=== PATIENT | male | born 1950 | race Caucasian/White ===

== ENCOUNTER 2019-09-02 05:54 | Inpatient (IN) | payer MEDICARE, OTHER ==
[~2019-09-02] VITALS: Ht 182.9 cm; Wt 150.6 kg
[2019-09-02] MEDS ORDERED: ANORO ELLIPTA1 EACH INH (05:57)
[2019-09-02] MEDS ORDERED: GLUCOPHAGE500 MG PO (05:57)
[2019-09-02] MEDS ORDERED: GLUCOTROL 5 MG T5 MG PO (05:57)
[2019-09-02] MEDS ORDERED: NOVOLIN 70/30 110 ML (05:58)
[2019-09-02] MEDS ORDERED: PROSCAR5 MG PO (06:05)
[2019-09-02] MEDS ORDERED: NEURONTIN800 MG PO (06:05)
[2019-09-02] MEDS ORDERED: ELIQUIS5 MG PO (06:05)
[2019-09-02] MEDS ORDERED: BETAPACE 80 MG80 MG PO (06:06)
[2019-09-02 07:13] LABS: ANION GAP 22.3 mmol/L (8-16); BILIRUBIN - TOTAL 0.37 mg/dL (0.2-1.3); CARBON DIOXIDE 23.9 mmol/L (21.0-32.0); CREATININE - SERUM 6.6 mg/dL (0.6-1.3); POTASSIUM - SERUM 4.2 mmol/L (3.5-5.1); PROTEIN - SERUM 6.7 g/dL (6.4-8.2)
[2019-09-02 07:20] LABS: CALCIUM 6.9 mg/dL (8.5-10.1)
--- NOTE | 2019-09-02 07:24 | NUR ---
CRITICAL LAB VALUE OF CALCIUM 6.[address] BELLA, HE SAID DO NOT TREAT THE HYPOCALCEMIA.
[2019-09-02 07:48] LABS: HEMATOCRIT 39.1 % (42.0-54.0); HEMOGLOBIN 13.2 g/dL (13.5-17.5); MCH 33.3 pg (26.0-34.0); MCHC 33.8 g/dL (31.0-37.0); MCV 98.7 fL (80.0-100.0); MEAN PLATELET VOLUME 13.1 fL (7.4-10.4); PLATELET COUNT 275 10x3/uL (130-400); RBC 3.96 10x6/uL (4.20-6.10)
[2019-09-02 08:28] VITALS: BP 145/51
[2019-09-02] MEDS ORDERED: ADALAT CC90 MG PO (08:52)
[2019-09-02] MEDS ORDERED: CATAPRES0.1 MG PO (08:53)
[2019-09-02] MEDS ORDERED: BENICAR40 MG PO (08:53)
[2019-09-02] MEDS ORDERED: LASIX80 MG PO (08:54)
[2019-09-02] MEDS ORDERED: HYDROCODON-ACE1 EA10 PO (08:54)
[2019-09-02 10:11] LABS: LYMPHOCYTES 17 % (15-50); MONOCYTES 23 % (2-11); NEUTROPHILS 46 % (40-80); PLATELET ESTIMATE NORMAL
[2019-09-02 10:12] LABS: ROULEAUX OCC; SMUDGE CELLS 1+
--- NOTE | 2019-09-02 10:45 | NUR ---
PATIENT ATTEMPTED TO URINATE. UNABLE BECAUSE I WAS PRESENT. WILL TRY AGAIN. NG TUBE CANNISTER EMPTIED. TOTAL NOW 1900 ML OUT. CL IN REACH. WCTM
[2019-09-02 12:00] VITALS: BP 161/46
--- NOTE | 2019-09-02 12:44 | NUR ---
CARDONA PLACED. REMOVED 1100 ML. STERILE TECHNIQUE MAINTAINED. 10 ML PLACED IN BALLOON. TOLERATED WELL. CL IN REACH. WCTM
[2019-09-02 14:30] LABS: APPEARANCE HAZY (CLEAR); BILIRUBIN NEGATIVE (NEGATIVE); COLOR YELLOW (YELLOW); GLUCOSE NEGATIVE (NEGATIVE); KETONE NEGATIVE (NEGATIVE); NITRITE NEGATIVE (NEGATIVE); PROTEIN 1+ mg/dL (NEGATIVE); UROBILINOGEN NORMAL (NORMAL)
--- NOTE | 2019-09-02 14:33 | NUR ---
PATIENT BLOOD GLUCOSE IS 53. TREATED AND NOTIFIED Diego WALLS IN REACH. [facility]
[2019-09-02 14:40] LABS: BACTERIA FEW /hpf (NEGATIVE); EPITHELIAL CELLS NSEEN /hpf (0-5); HYALINE CAST 0-5 /lpf (NONE SEEN); RED CELLS - URINE 0-5 /hpf (0-5); WHITE CELLS - URINE 0-5 /hpf (NEGATIVE)
[2019-09-02 15:14] LABS: INR 1.45 (0.85-1.17); PROTIME 17.1 SECONDS (11.6-15.0)
--- NOTE | 2019-09-02 16:08 | NUR ---
RIGHT FEMORAL GROIN CENTRAL LINE DRESSING CHANGED. WITH BIOPATCH PLACED PER PROTOCOL. TOLERATED WELL. DATED AND INITIALED. NO NEEDS AT THIS TIME. CL IN REACH. WCTM
[2019-09-02 17:04] VITALS: BP 115/53
--- NOTE | 2019-09-02 17:09 | NUR ---
MAGY PROVIDED. ON MED. CL IN REACH. TM
--- NOTE | 2019-09-02 18:18 | NUR ---
NOTIFIED DR BELLA ABOUT BLOOD GLUCOSE OF 70. TOLD TO TURN UP D5 TO 50 AND NS TO 100. WCTM
[2019-09-02 20:00] VITALS: BP 148/64
[2019-09-03] VITALS: BP 131/59
[2019-09-03 04:00] VITALS: BP 101/77
[2019-09-03 06:59] LABS: ANION GAP 17.7 mmol/L (8-16); BASOPHILS 0.1 % (0-2); CARBON DIOXIDE 23.2 mmol/L (21.0-32.0); EOSINOPHILS 0 % (0-7); HEMATOCRIT 36.1 % (42.0-54.0); HEMOGLOBIN 12.1 g/dL (13.5-17.5); IMMATURE GRANULOCYTES 1.6 % (0-5); LYMPHOCYTES 10.9 % (15-50); MAGNESIUM - SERUM 1.7 mg/dL (1.8-2.4); MCHC 33.5 g/dL (31.0-37.0); MCV 98.4 fL (80.0-100.0); MEAN PLATELET VOLUME 12.8 fL (7.4-10.4); MONOCYTES 15.2 % (2-11); NEUTROPHILS 72.2 % (40-80); PHOSPHOROUS 4.9 mg/dL (2.5-4.9); PLATELET COUNT 247 10x3/uL (130-400); POTASSIUM - SERUM 3.9 mmol/L (3.5-5.1); RBC 3.67 10x6/uL (4.20-6.10); RDW 14.2 % (11.5-14.5); WBC 20.3 10x3/uL (4.8-10.8)
[2019-09-03 07:22] LABS: CREATININE - SERUM 4.3 mg/dL (0.6-1.3)
[2019-09-03 07:24] LABS: CALCIUM 6.5 mg/dL (8.5-10.1)
--- NOTE | 2019-09-03 07:29 | NUR ---
ASSESSED AT THE BEGINNING OF THE SHIFT. PT IS SOME WHAT CONFUSED AND IS IN THE ROOM, THE BED ALARM WAS PUT ON AFTER HE WAS SITTING UP NAKED ON THE SIDE OF THE BED. WE HAD TO KEEP PUTTING CLOTHES ON HIM AND RETAPING HIS NG TUBE AND CARDONA WHEN HE PULLED ON THEM. AROUND MIDNIGHT HE PULLED HIS NG TUBE OUT AND HERB GABI WAS HERE AND ORDERED BENADRYL IV TO HELP HIM SETTLE DOWN. HE ALSO PUT A HOLD ON THE NG TUBE FOR NOW. LATER HIS STATED HE WAS HURTING AND WAS GIVEN MORPHINE. NEITHER MORPHINE OR BENADRYL WAS A HELP. HE HAD HIS BIPAP ON AND OFF ALL NIGHT AND BY THIS MORNING HIM AND HIS WERE WORN OUT.
--- NOTE | 2019-09-03 08:39 | NUR ---
IN ROOM. CPAP ON. CL IN REACH. NO NEEDS AT THIS TIME. WCTM
[2019-09-03 09:02] VITALS: BP 107/37
--- NOTE | 2019-09-03 11:15 | NUR ---
PATIENT DRESSING CHANGED TO RIGHT FEMORAL GROIN. PER PROTOCOL. WAS DETACHING. CARDONA CARE PROVIDED AND STAT LOCK REPLACED SINCE IT HAD LOST ADHESSION. CL IN REACH. IN ROOM. FALL PRECAUTIONS IN PLACE. WCTM
[2019-09-03 12:09] VITALS: BMI 39.9
[2019-09-03 13:25] VITALS: BP 104/53
[2019-09-03 17:02] VITALS: BP 139/51
[2019-09-03 20:00] VITALS: BP 126/48
[2019-09-04] VITALS (27 sets, daily range): BP systolic 90–177; BP diastolic 48–119
[2019-09-04 06:42] LABS: HEMATOCRIT 31.3 % (42.0-54.0); HEMOGLOBIN 10.4 g/dL (13.5-17.5); MCH 32.5 pg (26.0-34.0); MCHC 33.2 g/dL (31.0-37.0); MCV 97.8 fL (80.0-100.0); MEAN PLATELET VOLUME 13.2 fL (7.4-10.4); PLATELET COUNT 248 10x3/uL (130-400); RDW 14.8 % (11.5-14.5); WBC 28.4 10x3/uL (4.8-10.8)
[2019-09-04 06:58] LABS: ANION GAP 20.4 mmol/L (8-16); CARBON DIOXIDE 21.3 mmol/L (21.0-32.0); CREATININE - SERUM 4.3 mg/dL (0.6-1.3); MAGNESIUM - SERUM 1.6 mg/dL (1.8-2.4); PHOSPHOROUS 5.1 mg/dL (2.5-4.9); POTASSIUM - SERUM 3.7 mmol/L (3.5-5.1)
[2019-09-04 07:07] LABS: CALCIUM 6.4 mg/dL (8.5-10.1)
[2019-09-04 07:31] LABS: BASOPHILS 2 % (0-2); LYMPHOCYTES 8 % (15-50); MONOCYTES 6 % (2-11); NEUTROPHILS 79 % (40-80); PLATELET ESTIMATE NORMAL
[2019-09-04 07:32] LABS: TARGET CELLS OCC
--- NOTE | 2019-09-04 07:45 | NUR ---
PT RESTING IN BED WITH EYES OPEN, AT THE BEDSIDE. IV LOCATED TO RIGHT GROIN/FEMORAL AREA RUNNING D5W @ 50 AND NS @ 100ML. PT HAS HAD ANOTHER BM OF WATERY BLACK STOOL, SAMPLE COLLECTED AND TAKEN TO LAB. NO S/S OF DISTRESS AT THIS TIME, DENIES NEEDS, WILL CONT TO MONITOR.
--- NOTE | 2019-09-04 08:43 | NUR ---
REPORTED CRITICAL CALCIUM TO [place] CHANG 6.4, WILL TREAT BASED OFF ORDERS.
--- NOTE | 2019-09-04 14:04 | NUR ---
CENTRAL LINE ATTEMPTED LEFT CHEST PER DR WILSON
--- NOTE | 2019-09-04 15:06 | NUR ---
LR 1 LITER BOLUS STARTED.
--- NOTE | 2019-09-04 15:12 | NUR ---
TWO AMPS BICARB GIVEN WITH NS FLUSH PER ORDER.
[2019-09-04 15:41] LABS: HEMATOCRIT 31.8 % (42.0-54.0); HEMOGLOBIN 10.6 g/dL (13.5-17.5); MCH 32.8 pg (26.0-34.0); MCHC 33.3 g/dL (31.0-37.0); MCV 98.5 fL (80.0-100.0); MEAN PLATELET VOLUME 12.8 fL (7.4-10.4); PLATELET COUNT 227 10x3/uL (130-400); RBC 3.23 10x6/uL (4.20-6.10); RDW 14.8 % (11.5-14.5); WBC 20.4 10x3/uL (4.8-10.8)
[2019-09-04 15:50] LABS: ALBUMIN 1.9 g/dL (3.4-5.0); BILIRUBIN - TOTAL 0.52 mg/dL (0.2-1.3); CARBON DIOXIDE 20.4 mmol/L (21.0-32.0); CREATININE - SERUM 3.8 mg/dL (0.6-1.3); POTASSIUM - SERUM 3.4 mmol/L (3.5-5.1); PROTEIN - SERUM 5.8 g/dL (6.4-8.2)
[2019-09-04 15:52] LABS: CALCIUM 6.5 mg/dL (8.5-10.1)
--- NOTE | 2019-09-04 16:24 | NUR ---
PATIENT RECEIVED FROM PACU, SEDATED, ON VENT, ETT 8.0 AT 24 CM. VENT SETTINGS A/C 15, TV 600, PEEP 5, FIO2 50%. CM - SR RATE OF 76, BP - 145/66, RR - 15, BBS CLEAR AND EQUAL SPO2 - 99%. MIDLINE ABDOMINAL WOUND VAC IN PLACE AND RONNIE DRAINS X 2 TO LEFT ABDOMEN WITH BLOODY DRAINAGE NOTED. CARDONA CATH WITH 1050 OF DARK IDRIS UOP NOTED. RESTRAINTS PLACED. RIGHT GROIN CVL IN PLACE, DRESSING C/D/I, CVP MONITORED LEVELED AND ZEROED 11, RIGHT SUBCLAVIAN CVL WITH DRESSING C/DI, STAT XRAY FOR PLACEMENT, OK TO USE BUT PER DR. JOEL MONITOR CVP FROM RIGHT GROIN SITE DUE TO PLACEMENT NOT OPTIMAL FOR CVP MONITORING WITH RIGHT SUBCLAVIAN. HEAD TO TOE ASSESSMENT COMPLETED.
--- NOTE | 2019-09-04 16:30 | NUR ---
PATIENTS AND RETAIL PHARMACY TECHNICIAN AT BEDSIDE, UPDATED AND QUESTIONS ANSWERED. TELPHONE SECURITY CODE "SAINT" ESTABLISHED. PATIENT WAKING UP AND FOLLOWING COMMANDS.
--- NOTE | 2019-09-04 16:45 | NUR ---
CARDIZEM GTT STARTED FOR JUNCTIONAL TACHYCARDIA PER ORDER AT 5 MG/HR.
--- NOTE | 2019-09-04 17:00 | NUR ---
PATIENT TURNED AND REPOSITIONED INBED. VSS.
--- NOTE | 2019-09-04 17:00 | NUR ---
CARDIZEM GTT INCREASED TO 10 MG/HR.
--- NOTE | 2019-09-04 17:15 | NUR ---
CARDIZEM GTT INCREASED TO 15 MG/HR.
[2019-09-04 17:17] LABS: APPEARANCE CLEAR (CLEAR); BILIRUBIN NEGATIVE (NEGATIVE); COLOR YELLOW (YELLOW); GLUCOSE NEGATIVE (NEGATIVE); KETONE NEGATIVE (NEGATIVE); NITRITE NEGATIVE (NEGATIVE); PROTEIN NEGATIVE (NEGATIVE); SPECIFIC GRAVITY 1.015 (1.005-1.020); UROBILINOGEN NORMAL (NORMAL)
[2019-09-04 17:18] LABS: BACTERIA FEW /hpf (NEGATIVE); EPITHELIAL CELLS NSEEN /hpf (0-5)
[2019-09-04 17:19] LABS: WHITE CELLS - URINE 0-5 /hpf (NEGATIVE)
--- NOTE | 2019-09-04 17:42 | NUR ---
VERSED 2 MG GIVEN IVP PER ORDER WITH NS FLUSH FOR HR 140'S AND SYSTOLIC BP IN 140S.
--- NOTE | 2019-09-04 17:48 | NUR ---
PROPOFOL GTT STARTED AT 5 MCG/KG/MIN PER ORDER. PATIENT ON FENTANYL AT 300 MCG/HR AND AWAKE BREATHING OVER VENT.
--- NOTE | 2019-09-04 17:57 | NUR ---
PATIENT IN SR RATE 76, VSS. CARDIZEM GTT DECREASED TO 10 MG/HR.
--- NOTE | 2019-09-04 17:58 | NUR ---
PATIENT IN SR RATE OF 75, CARDIZEM GTT DECREASED TO 10 MG/HR.
--- NOTE | 2019-09-04 19:00 | NUR ---
SHIFT ASSESSMENT COMPLETE. VS STABLE. NO VISUAL CUES OF DISTRESS NOTED. WILL CONTINUE TO MONITOR.
[2019-09-05] VITALS (37 sets, daily range): BP systolic 77–141; BP diastolic 46–89
[2019-09-05 06:13] LABS: HEMATOCRIT 26.3 % (42.0-54.0); HEMOGLOBIN 8.6 g/dL (13.5-17.5); MCH 32.5 pg (26.0-34.0); MCHC 32.7 g/dL (31.0-37.0); MCV 99.2 fL (80.0-100.0); MEAN PLATELET VOLUME 12.9 fL (7.4-10.4); PLATELET COUNT 199 10x3/uL (130-400); RBC 2.65 10x6/uL (4.20-6.10); RDW 15.3 % (11.5-14.5); WBC 32.4 10x3/uL (4.8-10.8)
[2019-09-05 06:32] LABS: ALBUMIN 1.5 g/dL (3.4-5.0); BILIRUBIN - TOTAL 0.41 mg/dL (0.2-1.3); CARBON DIOXIDE 24.4 mmol/L (21.0-32.0); CREATININE - SERUM 3.5 mg/dL (0.6-1.3); MAGNESIUM - SERUM 1.8 mg/dL (1.8-2.4); PROTEIN - SERUM 5.3 g/dL (6.4-8.2)
[2019-09-05 06:33] LABS: APTT 39.8 SECONDS (22.8-39.4); INR 1.62 (0.85-1.17); PROTIME 18.6 SECONDS (11.6-15.0)
[2019-09-05 06:34] LABS: CALCIUM 6.4 mg/dL (8.5-10.1); POTASSIUM - SERUM 4.4 mmol/L (3.5-5.1)
[2019-09-05 09:07] LABS: LYMPHOCYTES 8 % (15-50); MONOCYTES 9 % (2-11); NEUTROPHILS 80 % (40-80); PLATELET ESTIMATE NORMAL; ROULEAUX OCC
--- NOTE | 2019-09-05 09:15 | OP ---
PATIENT NAME: CONCHITA HILL MEDICAL RECORD: [id number] :46 LOCATION:[facility] D.2309 ADMISSION DATE:09/02/19 SURGEON: EVA WILSON MD DATE OF OPERATION: 09/04/2019 SURGEON: Eva Wilson MD PREOPERATIVE DIAGNOSIS: Ischemic bowel. POSTOPERATIVE DIAGNOSIS: Ischemic gangrenous proximal small bowel. PROCEDURE PERFORMED: Exploratory laparotomy, small bowel resection, abdominal washout and application of negative pressure wound therapy greater than 50 square cm right subclavian central venous line. ANESTHESIA: General. COMPLICATIONS: None. SPECIMENS: Proximal small bowel approximately 30 cm. Case was grossly contaminated. ESTIMATED BLOOD LOSS: 200 cc. OPERATIVE COURSE: After consent was obtained, the patient was taken to the operating room and placed in supine position on the operating table. General anesthesia was given via endotracheal intubation after a timeout was performed to confirm the correct patient and procedure, and was prepped and draped in typical sterile fashion and Ioban dressing was placed. The midline incision was made with a 10-blade scalpel. Dissection of the subcutaneous tissue continued with electrocautery. The fascia was opened with #15 blade scalpel. Under direct vision, the main portion of the fascial incision was opened with electrocautery. The peritoneum was opened with electrocautery. An Abran wound retractor was placed. The greater omentum was extracorporealized. The transverse colon was reflected cephalad. The small bowel was extracorporealized. The small bowel was markedly dilated. It was dusky with patchy areas of necrosis through the proximal two-thirds of the small bowel as is consistent with the CT findings with the ligament of Treitz was located with the cephalad retraction of the transverse colon starting approximately 5 cm from the ligament of Treitz. There was an area of necrotic full-thickness gangrenous necrotic small bowel approximately 30 cm. Small bowel resection of this timeout was performed using firings of the NORMA linear cutting stapler. The mesentery was taken with the Harmonic scalpel. The specimen was passed off the field and sent for permanent pathology. The small bowel was decompressed distally with an enterotomy to staple line, removing approximately 2 liters of fluid from the mid and distal small bowel. The NG tube was placed at this time, with approximately 1500 cc suctioned from the proximal area. There was approximately 5 cm of small bowel at the ligament of Treitz. At this time, performed a handsewn small bowel anastomosis of the 2 staple ends. Enterotomies were made. Anastomosis was partially with common enterotomy with a single firing of the stapler in a [id number] fashion. The common enterotomy was then closed using running 3-0 Vicryl suture, but the staple line was both imbricated using 3-0 silk suture. The area was irrigated with 6 liters of normal saline. The NG tube was advanced through the pylorus into the second and third portions of the duodenum. Two OPERATIVE REPORT [id number] CONCHITA HILL drains were placed into the left upper quadrant at the anterior and posterior surface of the anastomosis. At this time, the bowel had markedly improved in color and flow, but there were still numerous areas of patchy necrosis noted. At this time, we decided to place an ABThera wound VAC with anticipation of return to the OR within 24-36 hours for a second look and delayed abdominal closure. The ABThera wound VAC was placed into the abdominal cavity. The RONNIE drains were secured to skin using 2-0 nylon suture. At the end of the case, all needle and instrument counts were correct. No complications occurred. The right chest and neck were then prepped and draped in typical sterile fashion. The right subclavian vein was cannulated on the first pass. The dilator was passed over the wire in a standard Seldinger fashion. The catheter was then advanced over the wire in a standard Seldinger fashion. A Biopatch was placed and secured to the skin using 2-0 nylon suture. At this time again, all needle and instrument counts were correct. No complications occurred. The patient was transferred to the ICU in critical condition, intubated. TRANSINT:[id number] Voice Confirmation ID: [id number] DOCUMENT ID: [id number] EVA WILSON MD at 0915 CC: [id number] DICTATION DATE: 09/04/19 1453 ENGINEERING CLERK: 09/04/[id number] ADM IN [facility] [address] [place] [address]
--- NOTE | 2019-09-05 19:00 | NUR ---
SHIFT ASSEESSMENT COMPLETED. PT CARE ASSUMED. MONITORS ON AND WORKING, VENT SETTINGS NOTED, CARDONA STAT LOCKED IN PLACE. SEE FLOW SHEET FOR FURTHER DETAILS. WILL CONTINUE TO OBSERVE.
--- NOTE | 2019-09-05 21:00 | NUR ---
PT TURNED AND REPOSITIONED FOR COMFORT, MONITORS ON AND WORKING, VITALS STABLE, AT BEDSIDE, UPDATE PROVIDED, WILL CONTINUE TO OBSERVE.
--- NOTE | 2019-09-05 23:00 | NUR ---
PT TURNED AND REPOSITIONED FOR COMFORT, MONITORS ON AND WORKING, VITALS STABLE. SEE FLOW SHEET FOR FURTHER DETAILS, WILL CONTINUE TO OBSERVE.
[2019-09-06] VITALS (30 sets, daily range): BP systolic 84–170; BP diastolic 55–117
--- NOTE | 2019-09-06 01:00 | NUR ---
PT IN AFIB WITH A RATE OF 140'S. PAGED, PHONECALL WAS RETURNED AND NEW ORDERS REC'D.
--- NOTE | 2019-09-06 03:00 | NUR ---
RIGHT GROIN CENTRAL LINE D/C PER MD ORDERS, TIP SENT OFF FOR CULTURE. PRESSURE APPLIED, DRESSING CDI. MONITORS ON AND WORKING, VITALS STABLE, SEE FLOW SHEET FOR FURTHER DETIALS, WILL CONTINUE TO OBSERVE.
[2019-09-06 03:48] LABS: BASOPHILS 0 % (0-2); EOSINOPHILS 0 % (0-7); HEMATOCRIT 27.9 % (42.0-54.0); HEMOGLOBIN 9.3 g/dL (13.5-17.5); IMMATURE GRANULOCYTES 1.5 % (0-5); LYMPHOCYTES 4.6 % (15-50); MCH 32.4 pg (26.0-34.0); MCHC 33.3 g/dL (31.0-37.0); MCV 97.2 fL (80.0-100.0); MEAN PLATELET VOLUME 12.5 fL (7.4-10.4); MONOCYTES 5.6 % (2-11); NEUTROPHILS 88.3 % (40-80); PLATELET COUNT 171 10x3/uL (130-400); RBC 2.87 10x6/uL (4.20-6.10); RDW 17.8 % (11.5-14.5); WBC 24.7 10x3/uL (4.8-10.8)
[2019-09-06 03:55] LABS: ALBUMIN 1.8 g/dL (3.4-5.0); ANION GAP 15.3 mmol/L (8-16); BILIRUBIN - TOTAL 0.26 mg/dL (0.2-1.3); CARBON DIOXIDE 24.1 mmol/L (21.0-32.0); CREATININE - SERUM 2.7 mg/dL (0.6-1.3); MAGNESIUM - SERUM 1.9 mg/dL (1.8-2.4); PHOSPHOROUS 4.8 mg/dL (2.5-4.9); POTASSIUM - SERUM 4.4 mmol/L (3.5-5.1); PROTEIN - SERUM 5.3 g/dL (6.4-8.2)
[2019-09-06 03:58] LABS: CALCIUM 6.9 mg/dL (8.5-10.1)
--- NOTE | 2019-09-06 07:15 | NUR ---
REPORT RECEIVED. PT ON VENT. HAS NGT. WOUND VAC TO ABD. 2 RONNIE DRAINS TO LEFT ABD. PLAN TO GO BACK TO SURGERY TODAY. PT HAS CARDONA. RIGHT SUBCLAVIAN CENTRAL LINE WITH LR WITH 20K, AMIODORARONE, NS, FENTANYL, AND PROPOFOL. PT IN AFIB. WILL CONTINUE TO MONITOR.
--- NOTE | 2019-09-06 08:43 | NUR ---
Nutrition follow-up: Pt NPO for exp lap today Labs reviewed Wt: 318# CVL pulled and tip cultured IV albumin Will need nutrition support when more stable. RDN following.
--- NOTE | 2019-09-06 09:00 | NUR ---
SIGNED CONSENTS FOR PROCEDURE TODAY AND FOR ANESTHESIA. HEART RATE JUMPING AROUND FROM 110-130. ON AMIODARONE AT 0.5MCG/MIN. DOCTORS AWARE. WILL CONTINUE TO MONITOR.
--- NOTE | 2019-09-06 10:56 | NUR ---
PT PREOPPED FOR SURGERY. CONSENTS SIGNED. AT BEDSIDE.
--- NOTE | 2019-09-06 12:30 | NUR ---
PT RESTING QUIETLY. ON SEDATION. PLAN TO GO TO SURGERY ABOUT 1400. WILL CONTINUE TO MONITOR.
--- NOTE | 2019-09-06 14:29 | NUR ---
Nutrition consult: Received consult to begin TPN chart reviewed TPN ordered. RDN following.
--- NOTE | 2019-09-06 14:53 | NUR ---
PT TAKEN TO SURGERY.
--- NOTE | 2019-09-06 16:43 | NUR ---
PT BACK FROM SURGERY. ABLE TO CLOSE ABD. HAS INCISIONAL VAC PLACED. STATED HE WOULD CHANGE THAT OUT ON FRIDAY PROBABLY. NEW CENTRAL LINE PLACED TO RIGHT SUBC. NEW TUBING AND MEDS HUNG. 99/63 WITH MAP OF 70. HR OF 112. ON AMIODARONE. 97%. VENT SETTINGS SAME PRIOR TO SURGERY. WILL CONTINUE TO MONITOR.
--- NOTE | 2019-09-06 17:00 | MORECARE ---
CASE MANAGEMENT DISCHARGE SUMMARY PATIENT: CONCHITA HILL UNIT: [id number] ADM DATE: 09/02/19 AGE: 69 : 48 SEX: M ROOM/BED: D.2309 AUTHOR: NETO,DOC PHYSICIAN: REFERRING PHYSICIAN: SAL BELLA MD DATE OF SERVICE: 09/06/19 Discharge Plan Patient Name: CONCHITA HILL Facility: [facility]:[place] : 1950 Planned Disposition: Anticipated Discharge Date: Discharge Date: Expected LOS: Initial Reviewer: [email or web address] Initial Review Date: 09/06/2019 Generated: 09/06/19 5:59 pm DCP- Discharge Planning Updated by [email or web address]: Amy Kerr on 09/06/19 3:[address] Patient Name: CONCHITA HILL Admission Status: ER Accout number: [id number] Admission Date: 09-02-2019 : 1950 Admission Diagnosis: Attending: SAL BELLA Current LOS: 4 Anticipated DC Date: Planned Disposition: Primary Insurance: MEDICARE A & B Discharge Planning Comments: CM met with patient's at bedside after explaining CM role and obtaining verbal consent. Patient is currently on vent sedated. Patient lives at home with his Tiesha where he is independent with his care and plans to return there upon discharge. Patient feels this would be a safe discharge. CM discussed availability / needs of home health and medical equipment. Patient denies any discharge needs at this time. Patient states he will have his family drive him home upon discharge. Patient is currently in ICU uncertain as to what his discharge needs will be at time of discharge. CM will continue to follow and assist as needed with discharge planning / needs. Coffee Attendant: Amy Kerr DCPIA - Discharge Planning Initial Assessment Updated by [email or web address]: Amy Kerr on 09/06/19 4:52 pm * Is the patient Alert and Oriented? No * How many steps to enter\exit or inside your home? * PCP [facility] * Pharmacy [facility] * Preadmission Environment Home with Family * ADLs Independent * Equipment CPAP * Other Equipment GLUCOMETER * List name and contact numbers for known caregivers / representatives who currently or will assist patient after discharge: TIESHA HILL - SPOUSE - [phone] * Verbal permission to speak to the caregivers and representatives has been obtained from the patient. N/A * Community resources currently utilized None * Additional services required to return to the preadmission environment? No * Can the patient safely return to the preadmission environment? Yes * Has this patient been hospitalized within the prior 30 days at any hospital? No Patient Name: CONCHITA HILL Page [phone] at 1700 All edits/amendments must be made on the electronic document DICTATION DATE: 09/06/191658 SERVOMECHANISM ASSEMBLER: FELIPE 09/06/191658 RPT#: [id number] DC DATE: STATUS: ADM IN [facility] [address] [place] [address] END OF REPORT
--- NOTE | 2019-09-06 17:45 | NUR ---
US TECH IN WITH PT AT THIS TIME.
[2019-09-07] VITALS (24 sets, daily range): BP systolic 84–163; BP diastolic 51–129
[2019-09-07 06:21] LABS: HEMATOCRIT 27.9 % (42.0-54.0); MCH 31.8 pg (26.0-34.0); MCHC 32.3 g/dL (31.0-37.0); MCV 98.6 fL (80.0-100.0); MEAN PLATELET VOLUME 12.7 fL (7.4-10.4); PLATELET COUNT 174 10x3/uL (130-400); RBC 2.83 10x6/uL (4.20-6.10); RDW 18.3 % (11.5-14.5)
[2019-09-07 06:24] LABS: WBC 15.6 10x3/uL (4.8-10.8)
[2019-09-07 06:39] LABS: ALBUMIN 2.2 g/dL (3.4-5.0); ANION GAP 15.4 mmol/L (8-16); BILIRUBIN - TOTAL 0.32 mg/dL (0.2-1.3); CREATININE - SERUM 2.2 mg/dL (0.6-1.3); MAGNESIUM - SERUM 2.2 mg/dL (1.8-2.4); PHOSPHOROUS 3.9 mg/dL (2.5-4.9); POTASSIUM - SERUM 4.4 mmol/L (3.5-5.1); PROTEIN - SERUM 4.6 g/dL (6.4-8.2)
--- NOTE | 2019-09-07 07:15 | NUR ---
REPORT RECEIVED. PT ON VENT; SETTINGS PER RT. PT HAS NGT TO LIS. PT HAS INCISIONAL VAC ON FROM SURGERY YESTERDAY. PT HAS 2 RONNIE DRAINS TO LEFT ABD. PT HAS A CARDONA. HEAD TO TOE ASSESSMENT COMPLETED. PT IN UNCONTROLLED AFIB. AFEBRILE. PT IN SOFT WRIST RESTRAINTS. WILL CONTINUE TO MONITOR.
--- NOTE | 2019-09-07 07:19 | NUR ---
Nutrition follow-up: Chart reviewed. TPN rate at 75 ml/hr instead of 40 ml/hr. Labs reviewed. T; propofol infusing @ 35.9 ml/hr RDN changed TPN order to 75 ml/hr and increased insulin due to elevated glucose. RDN following.
--- NOTE | 2019-09-07 07:24 | OP ---
PATIENT NAME: CONCHITA HILL MEDICAL RECORD: [id number] :46 LOCATION:[facility] D.2306 ADMISSION DATE:09/02/19 SURGEON: EVA WILSON MD DATE OF OPERATION: 09/06/2019 SURGEON: Eva Wilson MD PREOPERATIVE DIAGNOSES: 1. Ischemic small bowel. 2. Abdominal sepsis. 3. Open abdomen with negative pressure wound VAC. 4. Renal failure. 5. Respiratory failure. POSTOPERATIVE DIAGNOSES: 1. Ischemic small bowel. 2. Abdominal sepsis. 3. Open abdomen with negative pressure wound VAC. 4. Renal failure. 5. Respiratory failure. PROCEDURES PERFORMED: 1. Delayed abdominal closure. 2. Removal of negative pressure wound VAC therapy. 3. Abdominal washout. 4. Placement of negative pressure wound therapy incisional VAC. 5. Replacement of right subclavian central venous line with fluoroscopy. ANESTHESIA: General. COMPLICATIONS: None. SPECIMENS: None. Case was contaminated. OPERATIVE COURSE: After consent was obtained, the patient was taken from the ICU, intubated to the operating room. He was transferred to the operating table. General anesthesia was given. A timeout was taken to confirm the correct patient and procedure. At this time, I removed the intra-abdominal AbThera wound VAC from the patient's abdomen. The abdomen was then prepped and draped in typical sterile fashion. The abdomen was examined in all 4 quadrants. There was no evidence of bile leakage. There is no evidence of succuss. The abdomen was irrigated with 2 liters of warmed normal saline. Lysis of adhesions was gently performed. The omentum was grasped and retracted cephalad exposing the transverse colon and transverse mesocolon. The small bowel was run from the anastomosis at the ligament of Treitz to the terminal ileum. The areas of patchy necrosis of small bowel all appeared to be healthy and intact. There were some multiple areas that are the previous areas of concern that had turned from purple to red with no obvious serosal defects. The bowel appeared warm and well perfused. Further irrigation was performed. The anastomosis was again inspected. The anastomosis appeared to be healing well. It was reinforced with Tisseel. Using electrocautery, a segment of greater omentum was dissected off the transverse colon to be used as a patch around the anastomosis. At this time, the abdomen was closed using #1 looped PDS in a running fashion. The skin OPERATIVE REPORT [id number] CONCHITA HILL was loosely reapproximated with olive. The silver sponge was used, margy were created and placed between the olive and a layer of tape was placed on the skin as a barrier. A second piece of sponge was then needed to be used placed over the margy and secured with tape and placed to suction with good seal providing an incisional VAC closure. At the end of the case, all needle and instrument counts were correct. At this time, when the count was complete, the right chest was prepped and draped in a typical sterile fashion. Using fluoroscopy, a 0.035 Glidewire was placed through the distal channel and it was advanced past the atriocaval junction in the IVC. The catheter was removed. The dilator was passed over the Glidewire in standard fashion. Next, the 0.035 Glidewire was removed and an Amplatz stiff wire was placed under fluoroscopy into the atriocaval junction. At this time, a new triple-lumen catheter was passed over the wire. The dilator was removed. The catheter was then passed over the wire in a standard Seldinger fashion under fluoroscopy and advanced to the atriocaval junction. There was no kinking or coiling of the central line at this time. The wire was removed. All 3 ports were aspirated and flushed. Biopatch was placed. The catheter was secured to the skin using 2-0 Prolene suture and a sterile Tegaderm dressing. At the end of the procedure, all needle and instrument counts were correct. No complications occurred. The patient was transferred in critical condition to the ICU, intubated. TRANSINT:[id number] Voice Confirmation ID: [id number] DOCUMENT ID: [id number] EVA WILSON MD at 0724 CC: [id number] DICTATION DATE: 09/06/19 1649 WILDLIFE PROTECTOR: 09/07/19 022 ADM IN [facility] [id number] [place] [address]
--- NOTE | 2019-09-07 09:39 | NUR ---
PT SUCTIONED AND REPOSITIONED. AM MEDICATIONS GIVEN. VSS. IN UNCONTROLLED AFIB. WILL CONTINUE TO MONITOR.
--- NOTE | 2019-09-07 10:38 | NUR ---
DR HURTADO OKAYED TO RUN LR AT 10 CARRIER FLUID FOR SEDATION. STARTING PT ON BUMEX.
[2019-09-07 11:14] LABS: LYMPHOCYTES 7 % (15-50); MONOCYTES 6 % (2-11); NEUTROPHILS 86 % (40-80); PLATELET ESTIMATE NORMAL
[2019-09-07 11:15] LABS: ANISOCYTOSIS OCC; CRENATED CELLS OCC; ROULEAUX OCC
--- NOTE | 2019-09-07 11:21 | NUR ---
ECHO AND BUBBLE STUDY DONE. PT REPOSITIONED. DR MAO ROUNDED ON PT. NO NEW ORDERS AT THIS TIME.
--- NOTE | 2019-09-07 13:27 | NUR ---
PT IN UNCONTROLLED AFIB WITH RATE OF 167. SPOKE WITH DR BELLA ABOUT IT. HE STATED TO STOP DIURETICS AND TO GIVE 5 OF LOPRESSOR IV AND TO GET A 1L BOLUS OF NS. STATED HE TRIED THIS BEFORE AND THIS IS WHAT THE PT DID.
--- NOTE | 2019-09-07 15:24 | NUR ---
PT MAXED ON FENTANYL AT 700MCG/HR. REMAINS IN UNCONTROLLED AFIB WITH RATE OF 137. HAS VERSED INFUSING AT THIS TIME. TITRATING PER ORDER. WILL CONTINUE TO MONITOR.
--- NOTE | 2019-09-07 17:30 | NUR ---
PT RESTING QUIETLY. VSS. WILL CONTINUE TO MONITOR.
--- NOTE | 2019-09-07 19:00 | NUR ---
BEDSIDE REPORT AND SHIFT ASSESSMENT COMPLETE, SEE FLOWSHEET. PT SEDATED, OPENS EYES AND FOLLOWS COMMANDS. PT AGITATED, RESTLESS. AFIB ON MONITOR, RATE OF 150. AMIO @ 0.5. R SUBCLAVIAN CVL PATENT, DRESSING CDI, SEE IV FLOWSHEET. NGT TO LIS, DARK GREEN EMESIS NOTED IN TUBE AND CANISTER. PT VENTALATED, SEE FLOWSHEET FOR VENT SETTINGS. BILAT WRIST RESTRAINTS ON, SKIN WNL.
--- NOTE | 2019-09-07 19:30 | NUR ---
CHG BATH AND LINEN CHANGE COMPLETE.
--- NOTE | 2019-09-07 19:40 | NUR ---
HERB ASHLEY APN AT BEDSIDE. NEW ORDERS RECEIVED.
--- NOTE | 2019-09-07 20:45 | NUR ---
FAMILY AT BEDSIDE, UPDATE GIVEN.
--- NOTE | 2019-09-07 22:00 | NUR ---
SPOKE WITH DULCE GUY, UPDATE GIVEN. WILL CONTINUE TO MONITOR.
[2019-09-07 22:05] LABS: ANION GAP 15.9 mmol/L (8-16); CALCIUM 7.2 mg/dL (8.5-10.1); CARBON DIOXIDE 22.2 mmol/L (21.0-32.0); CREATININE - SERUM 1.9 mg/dL (0.6-1.3); MAGNESIUM - SERUM 1.9 mg/dL (1.8-2.4); POTASSIUM - SERUM 4.1 mmol/L (3.5-5.1)
--- NOTE | 2019-09-07 23:00 | NUR ---
REASSESSMENT COMPLETE, SEE FLOWSHEET. T ELEVATED, ICE PACKS PLACED ON PT. HR 110'S, AMIO INFUSING PER MAR. PT SEDATED, OPENS EYES. WILL CONTINUE TO MONITOR.
[2019-09-08] VITALS (24 sets, daily range): BP systolic 102–133; BP diastolic 52–94
--- NOTE | 2019-09-08 01:00 | NUR ---
SPOKE WITH LOUIS, UPDATE GIVEN.
--- NOTE | 2019-09-08 02:00 | NUR ---
AFIB RATE OF 150S. UPDATE CALLED TO DR BELLA. NEW ORDERS RECEIVED.
--- NOTE | 2019-09-08 03:00 | NUR ---
REASSESSMENT COMPLETE, SEE FLOWSHEET. T 98.4, ICE PACKS TAKEN OFF PT. LLQ RONNIE DRAIN AND LUQ RONNIE DRAIN DRESSINGS CHANGED, SITE WNL. WILL CPOC.
--- NOTE | 2019-09-08 05:00 | NUR ---
PT RESTING QUIETLY. NO SIGNS OF DISTRESS NOTED.
[2019-09-08 05:29] LABS: ALBUMIN 2.5 g/dL (3.4-5.0); ANION GAP 12.9 mmol/L (8-16); BILIRUBIN - TOTAL 0.48 mg/dL (0.2-1.3); CALCIUM 7.1 mg/dL (8.5-10.1); CARBON DIOXIDE 24.1 mmol/L (21.0-32.0); CREATININE - SERUM 1.6 mg/dL (0.6-1.3); PROTEIN - SERUM 4.9 g/dL (6.4-8.2)
--- NOTE | 2019-09-08 07:15 | NUR ---
REPORT RECEIVED. PT ON VENT. SETTINGS PER RT. PT HAS NGT TO LIS. 2 RONNIE DRAINS. INCISIONAL VAC TO ABDOMEN. HAS CARDONA. PT IN UNCONTROLLED AFIB. MULTIPLE DRIPS. VSS. WILL CONTINUE TO MONITOR.
[2019-09-08 08:34] LABS: MAGNESIUM - SERUM 2.1 mg/dL (1.8-2.4)
[2019-09-08 08:37] LABS: PHOSPHOROUS 2.7 mg/dL (2.5-4.9)
--- NOTE | 2019-09-08 08:40 | NUR ---
Nutrition follow-up: Chart review Labs reviewed Will continue current TPN regimen RDN following
--- NOTE | 2019-09-08 09:45 | NUR ---
DR MAO IN UNIT. WANTS PT SEDATION TURNED DOWN. FENTANYL TO 500MCG AND VERSED TO 3MG. WILL TITRATE DOWN.
--- NOTE | 2019-09-08 11:45 | NUR ---
PT SUCTIONED AND REPOSITIONED. WILL CONTINUE TO MONITOR.
--- NOTE | 2019-09-08 12:43 | NUR ---
DR JOEL ROUNDED FOR DR WILSON. FLUSHED NGT. NO NEW ORDERS AT THIS TIME. WILL CONTINUE TO MONITOR.
--- NOTE | 2019-09-08 13:50 | NUR ---
AT BEDSIDE. UPDATED REGARDING PT STATUS. WILL CONTINUE TO MONITOR.
--- NOTE | 2019-09-08 15:55 | NUR ---
HR STAYING IN 150S-160S. CALLED DR BELLA. GOT A ONE TIME DOSE OF LOPRESSOR 5MG IV.
--- NOTE | 2019-09-08 18:24 | NUR ---
HR 113. VSS. REPOSITIONED AND SUCTIONED. WILL CONTINUE TO MONITOR.
--- NOTE | 2019-09-08 18:55 | NUR ---
BEDSIDE REPORT AND SHIFT ASSESSMENT COMPLETE, SEE FLOWSHEET. VSS, NO SIGNS OF ACUTE DISTRESS NOTED. PT SEDATED, OPENS EYES. WILL CONTINUE TO MONITIOR.
--- NOTE | 2019-09-08 21:00 | NUR ---
AT BEDSIDE, UPDATE GIVEN.
--- NOTE | 2019-09-08 23:00 | NUR ---
REASSESSMENT COMPLETE, SEE FLOWSHEET. R NARE NGT PLACEMENT VERIFIED BY AUSCULTATION. AFIB ON MONITOR, SEE IV GTT FLOWSHEET. ORAL CARE COMPLETE. WILL CONTINUE TO MONITOR.
[2019-09-09] VITALS (24 sets, daily range): BP systolic 118–167; BP diastolic 41–71
--- NOTE | 2019-09-09 00:40 | NUR ---
PT CONVERTED TO NSR, RATE 60'S.
--- NOTE | 2019-09-09 01:00 | NUR ---
PT RESTING COMFORTABLY IN BED. VSS, NO SIGNS OF ACUTE DISTRESS NOTED. WILL CONTINUE TO MONITOR.
--- NOTE | 2019-09-09 03:00 | NUR ---
REASSESSMENT COMPLETE, SEE FLOWSHEET. VSS, NO SIGNS OF ACUTE DISTRESS NOTED. NSR ON MONITOR, RATE OF 60'S, OCCASIONAL PAC'S. REPOSITIONING COMPLETE.
--- NOTE | 2019-09-09 06:00 | NUR ---
PT RESTING QUIETLY. NSR ON MONITOR, RATE IN 60'S. WILL CONTINUE TO MONITOR.
[2019-09-09 06:59] LABS: ALBUMIN 2.5 g/dL (3.4-5.0); ANION GAP 13.3 mmol/L (8-16); BILIRUBIN - TOTAL 0.45 mg/dL (0.2-1.3); CALCIUM 7.3 mg/dL (8.5-10.1); CREATININE - SERUM 1.5 mg/dL (0.6-1.3); POTASSIUM - SERUM 4.3 mmol/L (3.5-5.1); PROTEIN - SERUM 5.1 g/dL (6.4-8.2)
[2019-09-09 07:34] LABS: MAGNESIUM - SERUM 2.1 mg/dL (1.8-2.4)
--- NOTE | 2019-09-09 07:41 | NUR ---
Nutrition follow-up: Chart reviewed Electrolytes adjusted in new TPN Wt: 315# Continues intubated, sedated RDN following.
--- NOTE | 2019-09-09 08:20 | NUR ---
0700 PT RECIVED SEDATED ON VENT, R SUBCLAVIAN CDI, SEE IV FLOWSHEET, ETT SECURED, NGT LIS, MIDLINE ABD WOUND VAC DRESSING INTACT LUQ LLQ RONNIE DRAINS COMPRESSED, DRESSING CHANGED, CADRONA DRAINING YELLOW URINE, REPOSITIONED , WILL CONITNUE TO MONITOR
--- NOTE | 2019-09-09 09:00 | NUR ---
DR WILSON IN UNIT, REMOVED WOUND VAC AND GAUZE DRESSING APPLIED
[2019-09-09 09:33] LABS: BASOPHILS 0.1 % (0-2); EOSINOPHILS 1.6 % (0-7); HEMATOCRIT 27.3 % (42.0-54.0); HEMOGLOBIN 8.4 g/dL (13.5-17.5); IMMATURE GRANULOCYTES 4.1 % (0-5); LYMPHOCYTES 9.5 % (15-50); MCH 31.5 pg (26.0-34.0); MCHC 30.8 g/dL (31.0-37.0); MCV 102.2 fL (80.0-100.0); MEAN PLATELET VOLUME 12.2 fL (7.4-10.4); MONOCYTES 8.2 % (2-11); NEUTROPHILS 76.5 % (40-80); RBC 2.67 10x6/uL (4.20-6.10); RDW 18.8 % (11.5-14.5); WBC 14.1 10x3/uL (4.8-10.8)
[2019-09-09 09:40] LABS: PLATELET COUNT 265 10x3/uL (130-400)
--- NOTE | 2019-09-09 10:34 | NUR ---
DR MAO NOTIFIIED OF FSBS, ORDERS FOR INSULIN GTT AND TO NOT CHANGE INSULIN IN TPN AT THIS TIME
--- NOTE | 2019-09-09 11:40 | NUR ---
PT WAS ON CPAP FOR APPROX 10 MINUTED AFTER WEANING SEDATION AND ABLE TO FOLLOW COMMANDS, LOW RATE ALARMING, RT NOTIFIED AND PLACED BACK ON RATE, SEDATION INCREASED BACK TO PREVIOUS ORDERED
--- NOTE | 2019-09-09 13:12 | NUR ---
DR BELLA BY TO SEE PT. NO FAMILY AT BEDSIDE AT THIS TIME
--- NOTE | 2019-09-09 15:33 | NUR ---
PT STATED SHE WAS NOT ATTEMPTING LAST NIGHT BUT HAS BEFORE WHEN SHE WAS 9, DUE TO SCREENING, AWAITING PSYCH EVAL AFTER SPEAKING WITH POCKET GRINDER OPERATOR AND CURRENTLY 1:1
--- NOTE | 2019-09-09 15:46 | NUR ---
PAGED DR MAO TO NOTIFY OF INCREASED FSBS AND RATE OUTSIDE OF GUARDRAIL LIMITS
--- NOTE | 2019-09-09 16:01 | NUR ---
PER DR MAO KEEP RUNNING INSULIN AT PREVIOUS RATE OF 21.98 AND CHECK FSBS IN ONE HOUR, ASK BATCH PLANT OPERATOR TO ADJUST TPM, DIETICIANS HAVE LEFT FOR DAY.
--- NOTE | 2019-09-09 19:00 | NUR ---
ASSESSMENT COMPLETED PER FLOWSHEETS. PT SEDATED ON VENT AROUSES EASILY WITH VOICES. SR ON CM. VENT SETTING PER RT. ABD INCISION DRESSING C,D,I. LEFT UPPER AND LOWER JPDRAIN INTACT WITH SEROUS DRAINAGE TO BULB, COMPRESSED. CARDONA CATH INTACT TO GRAVITY WITH YELLOW DRAINAGE. PPP. CONT TO MONITOR.
--- NOTE | 2019-09-09 20:10 | NUR ---
FAMILY AT [place]ED[place], UPDATED AND QUESTIONS ANSWERED.
--- NOTE | 2019-09-09 23:00 | NUR ---
REASSESSMENT COMPLETED PER FLOWSHEET. PT SEDATED ON VENT WITHOUT SIGNS OF DISTRESS. VSS. REPOSITIONED FOR COMFORT, MOUTH CARE PROVIDED PER VAP. HOB UP. SIDE RAILS UPX2. CPOC.
[2019-09-10] VITALS (32 sets, daily range): BP systolic 104–191; BP diastolic 47–75
[2019-09-10 06:04] LABS: ANION GAP 12.9 mmol/L (8-16); CALCIUM 8.1 mg/dL (8.5-10.1); CARBON DIOXIDE 24.6 mmol/L (21.0-32.0); CREATININE - SERUM 1.5 mg/dL (0.6-1.3); MAGNESIUM - SERUM 2.1 mg/dL (1.8-2.4)
[2019-09-10 06:10] LABS: PHOSPHOROUS 1.4 mg/dL (2.5-4.9); POTASSIUM - SERUM 3.5 mmol/L (3.5-5.1)
[2019-09-10 06:47] LABS: BASOPHILS 0.1 % (0-2); EOSINOPHILS 1.8 % (0-7); HEMATOCRIT 27.2 % (42.0-54.0); HEMOGLOBIN 8.4 g/dL (13.5-17.5); IMMATURE GRANULOCYTES 1.9 % (0-5); LYMPHOCYTES 11.2 % (15-50); MCH 31.6 pg (26.0-34.0); MCHC 30.9 g/dL (31.0-37.0); MCV 102.3 fL (80.0-100.0); MONOCYTES 8.9 % (2-11); NEUTROPHILS 76.1 % (40-80); PLATELET COUNT 305 10x3/uL (130-400); RBC 2.66 10x6/uL (4.20-6.10); RDW 18.8 % (11.5-14.5); WBC 13.9 10x3/uL (4.8-10.8)
--- NOTE | 2019-09-10 06:57 | NUR ---
Nutrition follow-up: Chart reviewed Labs reviewed: PO4 low, glucose continues high Electrolytes adjusted Insulin increased in bag Pt on insulin drip per Dr. Cline Pt remains intubated; arousing to voice per nursing RDN following
--- NOTE | 2019-09-10 07:00 | NUR ---
PT RESTING IN BED, VSS AND WNL. PT DOES NOT RESPOND TO PAINFUL STIMULI AT THIS TIME BUT PT IS ON FENTANYL AND VERSED WITH MECHANICAL VENT. DRESSING NOTED TO ABD. 2 RONNIE DRAINS NOTED TO LEFT ABD WITH BLOODY DRAINAGE. ETT SECURED AT 24CM RIGHT LIP LINE. NGT TO LWIS NOTED TO RIGHT NARE. VSS. BED ALARM ON, WILL CONT TO FOLLOW POC
--- NOTE | 2019-09-10 08:00 | NUR ---
HERE AND REMOVED ABD DRESSING. NEW ORDERS RECIEVED FOR WET TO DRY DRESSING DAILY. WOUND CARE PROVIDED ORDERED. CALLED AND WANTS PT FENTANYL CUT IN HALF. WILL START WEANING ORDERED. BED ALARM ON, WILL CONT TO FOLLOW POC
--- NOTE | 2019-09-10 10:12 | NUR ---
HERE AND ASKED FOR VERSED TO BE WEANED DOWN. WILL START WEANING PROCESS. PT MOVING HANDS AND LOOKING AROUND AT THIS TIME, NATALIIA WRIST RESTRAINTS ON. BED ALARM ON. WILL CONT TO FOLLOW POC
--- NOTE | 2019-09-10 10:30 | NUR ---
CHG BATH GIVEN, FULL LINEN CHANGE PROVIDED AND ELECTRODES REPLACED. BED ALARM ON. WILL CONT TO FOLLOW POC
--- NOTE | 2019-09-10 11:15 | NUR ---
PT HR 160-170S PAGED . NEW ORDER FOR 2MG VERSED BOLUS VIA DEPARTMENT HEAD JUNIOR COLLEGE PUMP. RESTART VERSED AT 2MG/HR. PLACE PT BACK ON ASSIST CONTROL. RESP THERAPY HERE AND PLACED PT BACK ON ASSIST CONTROL. WILL CONT TO FOLLOW POC
--- NOTE | 2019-09-10 11:24 | NUR ---
PT HR STAYING AT 150-160 AFTER VERSED BOLUS AND ASSIST CONTROL. PAGED
--- NOTE | 2019-09-10 11:44 | NUR ---
HERE AND GAVE ORDER FOR ONE TIME DOSE OF METOPROLOL 2.5MG NOW.
--- NOTE | 2019-09-10 11:56 | NUR ---
SPOKE WITH DUE TO PT BEING ON ELECTROLYTE PROTOCOL. DOCUMENTED IN HIS NOTE THAT HE WAS ADJUSTING ELECTROLYTES IN THE TPN. NEW ORDER GIVEN TO D/C ELECTROLYTE PROTOCOL.
--- NOTE | 2019-09-10 12:00 | NUR ---
DISCONTINUED RONNIE DRAIN #1 ORDERED BY .
[2019-09-10 12:09] LABS: OVA + PARASITE EXAM Final report (())
--- NOTE | 2019-09-10 13:26 | NUR ---
PAGED DUE TO PT HR STILL 130S. NEW ORDER RECIEVED TO INCREASE FENTANYL FROM 175MCG TO 200MCG. GIVE ONE TIME 2MG VERSED BOLUS VIA PAINT PREP TECHNICIAN. GIVE METOPROLOL 2.5MG ONE TIME NOW.
--- NOTE | 2019-09-10 15:04 | NUR ---
HERE AND NOTIFIED HIM OF PT HR STAYING IN THE 130S. NEW ORDER RECIEVED FOR METOPROLOL 5MG IVP AND 500ML NS BOLUS. WILL CONT TO FOLLOW POC
--- NOTE | 2019-09-10 16:02 | NUR ---
HERE AND UPDATED HIM ON PT HR AND ORDERS THAT HAD GIVEN. NEW ORDER FOR ADENOSINE 6MG IVP NOW. AT BEDSIDE AND SECOND NURSE AT BEDSIDE. ADENOSINE GIVEN AND EKG SHOWED AFLUTTER. PT HR RESUMED TO 136 BEATS PER MIN. NEW ORDER RECIEVED TO START PT ON CARDIZEM GTT AT 10. BED ALARM ON. WILL CONT TO FOLLOW POC
[2019-09-10 17:45] LABS: ANION GAP 13.8 mmol/L (8-16); CALCIUM 7.9 mg/dL (8.5-10.1); CARBON DIOXIDE 24.2 mmol/L (21.0-32.0); CREATININE - SERUM 1.4 mg/dL (0.6-1.3)
--- NOTE | 2019-09-10 18:00 | NUR ---
PT RESTING IN BED, VSS. ETT SECURED. BED ALARM ON. WILL CONT TO FOLLOW POC
--- NOTE | 2019-09-10 19:00 | NUR ---
REPORT RECEIVED PT SEDATED SEE IV FLOWSHEET AND EMAR FOR DRIPS AND TITRATIONS. ORALLY INTUBATED O2 SAT 92%. BREATH SOUNDS DIMINISHED PT OBESE MIDLINE ABD INCISION INTACT NO BLEEDING NOTED. RIGHT RTLSC WITH DRESSING INTACT. CM READING AFIB/FLUTTER ON CARDIZEM AND AMIODARONE GTT WILL MONITOR. REPOSITIONED FOR COMFORT WITH WEDGES. PITTING EDEMA GENERALIZED HEEL PROTECTORS ON AND HEELS ELEVATED OFF BED WITH PILLOWS
--- NOTE | 2019-09-10 20:00 | NUR ---
PTS AT BEDSIDE FOR VISITATION UPDATED AND QUESTIONS ANSWERED
--- NOTE | 2019-09-10 23:00 | NUR ---
REASSESSMENT COMPLETE REPOSITIONED FOR COMFORT O2 SAT 90-92% SUCTIONED MODERATE AMOUNT CLEAR SECRETIONS ORALLY AND VIA ETT. CHANGED OUT NGT CANISTER LARGE AMOUNT GREEEN OUTPUT NOTED TO CANNISTER. CPOC
[2019-09-11] VITALS (24 sets, daily range): BP systolic 95–135; BP diastolic 33–66; Ht 182.9 cm; Wt 150.6 kg
--- NOTE | 2019-09-11 04:00 | NUR ---
ABG RESULT PO2 LOW SEE RESP NOTES AND ABG RESULTS. RT INCREASED VENT FIO2 TO 45%.
[2019-09-11 05:39] LABS: BASOPHILS 0.3 % (0-2); EOSINOPHILS 1.6 % (0-7); HEMATOCRIT 26.3 % (42.0-54.0); HEMOGLOBIN 8.1 g/dL (13.5-17.5); IMMATURE GRANULOCYTES 1.2 % (0-5); LYMPHOCYTES 15.1 % (15-50); MCH 31.5 pg (26.0-34.0); MCHC 30.8 g/dL (31.0-37.0); MCV 102.3 fL (80.0-100.0); MEAN PLATELET VOLUME 12.3 fL (7.4-10.4); MONOCYTES 10.6 % (2-11); NEUTROPHILS 71.2 % (40-80); RBC 2.57 10x6/uL (4.20-6.10); RDW 18.7 % (11.5-14.5); WBC 14.1 10x3/uL (4.8-10.8)
[2019-09-11 05:55] LABS: PLATELET COUNT 384 10x3/uL (130-400)
[2019-09-11 05:56] LABS: ANION GAP 13.5 mmol/L (8-16); CALCIUM 8.2 mg/dL (8.5-10.1); CARBON DIOXIDE 23.5 mmol/L (21.0-32.0); CREATININE - SERUM 1.7 mg/dL (0.6-1.3); MAGNESIUM - SERUM 2.2 mg/dL (1.8-2.4)
[2019-09-11 06:00] LABS: PHOSPHOROUS 1.5 mg/dL (2.5-4.9)
--- NOTE | 2019-09-11 06:56 | NUR ---
Nutrition follow-up: Chart reviewed Labs reviewed; PO4 continues to be low even with 27 MeQ in TPN Recommend PO4 electrolyte replacement Glucose much better RDN will continue to monitor and make adjustments as needed.
--- NOTE | 2019-09-11 08:00 | NUR ---
COMPLETE HIBCLENS BATH GIVEN HAIR WASHED. [place] CLEANED. CARDONA CATH CARE DONE. ABD ABD DRESSINGS CHANGED. CLEANED WITH WOUND CLEANSER, 4X4 APPLIED BORDER DRESSING COVERING. SOME YELLOW DRAINAGE ON DRESSING NOTED. ELINA INTACT. PATIENT TOLERATED WELL
--- NOTE | 2019-09-11 08:50 | NUR ---
RENAL PAYROLL DIRECTOR HERE TALKED WITH REVIEWED LAB WITH HER.
--- NOTE | 2019-09-11 09:09 | NUR ---
DR. MAO HERE REVIEWED MEDICATIONS, LAB WITH HIM, NO VENT TRIAL TODAY
--- NOTE | 2019-09-11 11:29 | NUR ---
DR. BELLA HERE ORDERS RECEIVED TO INCREASE CARDIZEM TO 15 MG HOUR. CONSULT CARDIOLOGY. EKG AFTER CARDIZEM HAS BEEN INCREASED
--- NOTE | 2019-09-11 11:30 | NUR ---
DR. MURRAY COX
[2019-09-11 11:32] LABS: ALBUMIN 2.5 g/dL (3.4-5.0); ALKALINE PHOSPHATASE 36 U/L (46-116); ALT (SGPT) 14 U/L (10-68); BILIRUBIN - DIRECT 0.16 mg/dL (0.00-0.30); BILIRUBIN - INDIRECT 0.26 mg/dL (0.00-1.00); BILIRUBIN - TOTAL 0.42 mg/dL (0.2-1.3); PROTEIN - SERUM 5.8 g/dL (6.4-8.2); TRIGLYCERIDE 133 mg/dL (30-200)
[2019-09-11 11:35] LABS: TROPONIN-I < 0.017 ng/mL (0.000-0.060)
--- NOTE | 2019-09-11 12:00 | NUR ---
DR. GAO HERE ORDERS NOTED.
--- NOTE | 2019-09-11 14:00 | NUR ---
DR. MAO HERE ORDERS TO INCREASE VERSED TO 3 MG HOUR. UPDATE GIVEN. HERE UPDATE GIVEN. PATIENT WILL GRIMACE WHEN SUCTION, LIFT ARMS AT TIMES. RESTING COMFORTABLY MOST OF THE TIME.
--- NOTE | 2019-09-11 16:06 | NUR ---
PATIENT HEART RATE DROPPED TO 68 PATIENT. FLUCUANTING BETWEEN 90-120. BLOOD PRESSURE STABLE.
--- NOTE | 2019-09-11 18:00 | NUR ---
RESTING COMFORTABLY. MONITOR ATRIAL FLUTTER RATE 60-110. DR. JOEL HERE UPDATE GIVEN.
--- NOTE | 2019-09-11 19:00 | NUR ---
REPORT RECEIVED. INITIAL ASSESSMENT COMPLETE. PT ORALLY INTUBATED MECHANICALLY VENTED SEE RESP THERAPY NOTES. O2 SAT 97%. BREATH SOUNDS REL CLEAR DIMINISHED BASILAR. PT OBESE ABD LARGE DISTENDED AND FIRM HAS MIDLINE DRESSING CDI AND LEFT SIDE RONNIE WITH SEROUS DRAINAGE DRESSING CDI. CM READING AFLUTTER PT ON CARDIZEM AND AMIODARONE GTT. PT SEDATED WITH FENTANYL AND VERSED. HEELS AND ARMS ELEVATED. SEE FLOWSHEET FOR FURTHER DETAILS. BED LOW POSITION SIDE RAILS UP TIMES 3 FOR BED MOBILITY AND SAFETY
[2019-09-11 19:14] LABS: APPEARANCE CLOUDY (CLEAR); COLOR YELLOW (YELLOW)
[2019-09-11 19:15] LABS: AMORPHOUS SEDIMENT >1+ /lpf (NONE SEEN); BACTERIA FEW /hpf (NEGATIVE); BILIRUBIN NEGATIVE (NEGATIVE); EPITHELIAL CELLS 0-5 /hpf (0-5); GLUCOSE NEGATIVE (NEGATIVE); KETONE NEGATIVE (NEGATIVE); NITRITE NEGATIVE (NEGATIVE); PROTEIN 1+ mg/dL (NEGATIVE); UROBILINOGEN NORMAL (NORMAL); WHITE CELLS - URINE 0-5 /hpf (NEGATIVE)
--- NOTE | 2019-09-11 20:00 | NUR ---
PTS AT BEDSIDE FOR VISITATION QUESTIONS ANSWERED AND UPDATE GIVEN CPOC
[2019-09-12] VITALS (24 sets, daily range): BP systolic 22–150; BP diastolic 34–74
--- NOTE | 2019-09-12 03:00 | NUR ---
REASSESSMENT COMPLETE NO CHANGES REPOSITIONED FOR COMFORT CPOC
--- NOTE | 2019-09-12 05:00 | NUR ---
SUCTIONED MODERATE AMOUNT CLEAR SECRETIONS ORALLY AND VIA ORAL ETT ORAL CARE DONE
[2019-09-12 05:54] LABS: ANION GAP 13.7 mmol/L (8-16); CALCIUM 7.9 mg/dL (8.5-10.1); CARBON DIOXIDE 22.5 mmol/L (21.0-32.0); MAGNESIUM - SERUM 2.4 mg/dL (1.8-2.4); POTASSIUM - SERUM 4.2 mmol/L (3.5-5.1)
[2019-09-12 05:55] LABS: CREATININE - SERUM 2.2 mg/dL (0.6-1.3); PHOSPHOROUS 2.3 mg/dL (2.5-4.9)
[2019-09-12 06:13] LABS: BASOPHILS 0.2 % (0-2); EOSINOPHILS 1.6 % (0-7); HEMATOCRIT 24.5 % (42.0-54.0); IMMATURE GRANULOCYTES 0.8 % (0-5); LYMPHOCYTES 14.7 % (15-50); MCHC 30.2 g/dL (31.0-37.0); MCV 102.5 fL (80.0-100.0); MEAN PLATELET VOLUME 12.2 fL (7.4-10.4); NEUTROPHILS 72.7 % (40-80); PLATELET COUNT 431 10x3/uL (130-400); RBC 2.39 10x6/uL (4.20-6.10); RDW 18.7 % (11.5-14.5); WBC 15.9 10x3/uL (4.8-10.8)
[2019-09-12 06:44] LABS: HEMOGLOBIN 7.4 g/dL (13.5-17.5)
--- NOTE | 2019-09-12 07:00 | NUR ---
ETT SECURE TO VENT BILATERAL LUNG SOUNDS EQUAL. OPENS EYES TO STIMULATION AND WILL GRIMACE. RESTING COMFORTABLY ABD DRESSING DRY AND INTACT X3. RONNIE DRAIN SECURE BULB COMPRESSED SERO DRAINAGE NOTED. ARMS ELELVATED ON PILLOWS. BOTH HEELS BRIDGES WITH PILLOWS. HEEL PROTECTOR IN PLACE. NG TO LOW INTERMITTENT SUCTION WITH GREEN LIQUID DRAINAGE 500 ML IN CONTAINER. RESTRAINTS REMOVED. PATIENT NOT MOVING ARMS EXCEPT WHEN TURNED. DOES NOT REACH FOR ETT OR LINES. CVP LINE ZEROED AND FLUSHED GOOD WAVE FORM. HEAD OF BED ELEVATED 30 DEGREES. WEDGES USED TO TURN PATIENT. CARDONA CATH PATENT DRAINING CLOUDY IDRIS URINE. DR. MAO HERE ORDERS RECEIVED TO GIVE ONE UNIT OF BLOOD.
--- NOTE | 2019-09-12 09:00 | NUR ---
HERE UPDATE GIVEN. 1/2 NS INCREASED TO 75 ML HOUR. NO DISTRESS EXCEPT WHEN TURNED. MONITOR ATRIAL FLUTTER VARIABLE BLOCK. SUCTION SANTANA SPUTUM FROM MOUTH.
--- NOTE | 2019-09-12 11:00 | NUR ---
DR. BELLA HERE UPDATE GIVEN. PATIENT OPENS EYES WHEN REPOSITIONED. COMPLETE BED BATH WITH HIBCLENS GIVEN.ABD DRESSING CHANGE BROWN DRAINAGE NOTED ON DRESSING. INCISION CLEAN WITH WOUND CLEANSER. 4X4 PLACED OVER INCISIONS, COVERED WITH BORDER DRESSING X 3. RONNIE DRAIN DRESSING CHANGED SITE WITH SOME PINK AROUND SITE NO DRAINAGE. PATIENT TOLERATED WELL. NO SKIN BREAKDOWN NOTED. SOME BRUISING ON ARMS.
[2019-09-12 15:23] LABS: ANION GAP 16.1 mmol/L (8-16); CALCIUM 7.4 mg/dL (8.5-10.1); CARBON DIOXIDE 20.5 mmol/L (21.0-32.0); CREATININE - SERUM 2.5 mg/dL (0.6-1.3); POTASSIUM - SERUM 4.6 mmol/L (3.5-5.1)
--- NOTE | 2019-09-12 18:19 | NUR ---
REPOSITIONED ON BACK. RESTING COMFORTABLY. MONITOR ATRIAL FLUTTER. EMPTIED 60 ML OUT OF RONNIE DRAIN. NO DISTRESS.
--- NOTE | 2019-09-12 19:00 | NUR ---
PT SEDATED ON VENT. ETT AND NGT SECURED, PT AROUSES TO DEEP STIMULI. ASSESSMENT COMPLETED, SEE FLOWSHEET. RT SUBCLAVIAN CVL INFUSING, SEE IV FLOWSHEET. RONNIE DRAIN IN PLACE DRAINING SEROUS FLUID. NO ACUTE DISTRESS NOTED AT THIS TIME, WILL CONTINUE TO MONITOR.
--- NOTE | 2019-09-12 21:00 | NUR ---
FAMILY AT BEDSIDE, PT SEDATED ON VENT. AROUSES TO DEEP STIMULI. NO ACUTE DISTRESS NOTED AT THIS TIME.
--- NOTE | 2019-09-12 23:00 | NUR ---
PT GRIMACES TO PAINFUL STIMULI. NO ACUTE DISTRESS NOTED, WILL CONTINUE TO MONITOR.
[2019-09-13] VITALS (24 sets, daily range): BP systolic 125–165; BP diastolic 44–55
--- NOTE | 2019-09-13 01:00 | NUR ---
PT SEDATED, ON VENT. NO ACUTE DISTRESS NOTED AT THIS TIME, WILL CONTINUE TO MONITOR.
--- NOTE | 2019-09-13 03:00 | NUR ---
PT SEDATED ON VENT. NO ACUTE DISTRESS NOTED. WILL CONTINUE TO MONITOR.
--- NOTE | 2019-09-13 05:00 | NUR ---
PT SEDATED ON VENT. NO ACUTE DISTRESS NOTED AT THIS TIME.
[2019-09-13 05:09] LABS: BASOPHILS 0.3 % (0-2); EOSINOPHILS 2.4 % (0-7); IMMATURE GRANULOCYTES 0.6 % (0-5); LYMPHOCYTES 16.4 % (15-50); MCH 31.5 pg (26.0-34.0); MCHC 30.8 g/dL (31.0-37.0); MCV 102.2 fL (80.0-100.0); MEAN PLATELET VOLUME 12.2 fL (7.4-10.4); MONOCYTES 9.2 % (2-11); NEUTROPHILS 71.1 % (40-80); PLATELET COUNT 379 10x3/uL (130-400); RDW 19.7 % (11.5-14.5); WBC 12.6 10x3/uL (4.8-10.8)
[2019-09-13 05:10] LABS: HEMATOCRIT 33.1 % (42.0-54.0); HEMOGLOBIN 10.2 g/dL (13.5-17.5); RBC 3.24 10x6/uL (4.20-6.10)
[2019-09-13 05:22] LABS: ALBUMIN 2.6 g/dL (3.4-5.0); ANION GAP 15.1 mmol/L (8-16); BILIRUBIN - TOTAL 0.27 mg/dL (0.2-1.3); CALCIUM 7.6 mg/dL (8.5-10.1); CARBON DIOXIDE 21.5 mmol/L (21.0-32.0); CREATININE - SERUM 3.1 mg/dL (0.6-1.3); MAGNESIUM - SERUM 2.4 mg/dL (1.8-2.4); POTASSIUM - SERUM 4.6 mmol/L (3.5-5.1); PROTEIN - SERUM 5.8 g/dL (6.4-8.2)
[2019-09-13 05:48] LABS: PHOSPHOROUS 3.6 mg/dL (2.5-4.9)
--- NOTE | 2019-09-13 06:00 | NUR ---
PT SEDATED ON VENT, AROUSES TO DEEP STIMULI. VITALS STABLE, WILL CONTINUE TO MONITOR.
--- NOTE | 2019-09-13 09:25 | NUR ---
patient report recieved. see assessment. see adl's
--- NOTE | 2019-09-13 09:34 | NUR ---
Nutrition follow-up: Pt NPO TPN @ 75 ml/hr; renal [employer] LIAISON adjusted TPN formula 09/10 Labs reviewed Propofol discontinued; will need intralipids started soon (2x/week) to prevent EFAD. RDN following.
--- NOTE | 2019-09-13 10:01 | NUR ---
AT BEDSIDE. ASKED TO SPEAK WITH CHARGE NURSE. FAMILY HAS DECIDED THEY WANT TO TRY TO MOVE PATIENT TO [place] TO [facility] SO THAT THE PATIENT WOULD BE CLOSER TO HOME. HAVE TWO YOUNG KIDS AT HOME THAT MAKE IT HARD BEING 3 HOURS AWAY FROM BEING IN [place].
--- NOTE | 2019-09-13 10:02 | CN ---
PATIENT NAME:CONCHITA HILL MEDICAL RECORD: [id number] : 46 LOCATION:[id number] ADMIT DATE: 09/02/19 ACCOUNT: [id number] CONSULTING PHYSICIAN: FLAVIA BOOKER MD REFERRING PHYSICIAN: SAL BELLA MD DATE OF CONSULTATION: 09/05/2019 CONSULT REQUESTING PHYSICIAN: Dr. BREANNA Ludwig. REASON FOR CONSULTATION: Vent management and septic shock. HISTORY OF PRESENT ILLNESS: Mr. Hlil is a 68-year-old gentleman who was initially admitted in [place] with acute abdomen, small-bowel obstruction and nkjri-tp-kafmman renal failure. The patient was transferred over here for advanced care. Yesterday, the patient was taken to the OR for ischemic bowel. The patient underwent laparotomy and ischemic bowel resection. Since then, the patient stayed on the ventilator. He was septic and hypotensive. Also in atrial fibrillation. Her heart rate controlled with Cardizem. The history was taken mainly by talking to the nursing staff and reviewing the patient's note. PAST MEDICAL HISTORY: 1. COPD. 2. Obstructive sleep apnea, on BiPAP. 3. Diabetes mellitus. 4. Neuropathy. 5. Gastroesophageal reflux disease. 6. Chronic backache and arthritis. PAST SURGICAL HISTORY: 1. He has a cataract surgery. 2. Appendectomy. 3. Trigger finger release surgery. 4. Achilles tendon surgery. 5. Carotid endarterectomy. 6. Rectal fissure repair. ALLERGIES: There are no known drug allergy. MEDICATIONS: On [employer] is reviewed. PERSONAL AND SOCIAL HISTORY: The patient is an ex-smoker. FAMILY HISTORY: Significant for cardiovascular disease and lung disease and cancer. PHYSICAL EXAMINATION: GENERAL: Now, the patient is orally intubated and sedated. He is on assist control mechanical ventilation. VITAL SIGNS: Tidal volume of 600 and FiO2 60% and the PEEP is 5. HEENT: Conjunctiva is pink. Sclerae is not icteric. NECK: Supple, no JVD. CHEST: There are bibasilar crackles. No wheezing. HEART: Rate and rhythm is irregular, normal heart sounds. The heart sound a bit distant. ABDOMEN: The abdomen has open wound. CONSULT REPORT [id number] CONCHITA HILL RECTAL: Deferred. EXTREMITIES: No cyanosis, no clubbing. There is 1+ pedal edema. CENTRAL NERVOUS SYSTEM: The patient is orally intubated and sedated. IMAGING: Chest radiograph on 09/05/2019, is 1 view film, there are coiling of the subclavian line in the subclavian vein. There are mild cardiomegaly and there is central vascular congestion. No pleural effusion, no pneumothorax. LABORATORY DATA: CBC: The WBC is 32.4, hemoglobin 8.9, hematocrit 26.3, the platelet count is 199. Chemistry: Sodium 138, potassium 4.4, BUN is 107, bicarbonate is 24.4, creatinine 3.5, calcium is 6.4, magnesium 1.8, albumin is 1.5. ABG: The pH is 7.35, pCO2 is 40.4, pO2 is 108, bicarbonate is 24. The lactic acid was 2.2, it improved to 1.65. IMPRESSION: 1. Acute hypoxic respiratory failure post-procedure. 2. Septic shock. 3. Ischemic bowel, status post bowel resection. 4. Status post laparotomy. 5. Chronic obstructive pulmonary disease. 6. Dhtzz-sw-ngnsmjg renal failure, most likely secondary to acute tubular necrosis. 7. Anemia, most likely blood loss anemia. 8. Leukocytosis. 9. History of obstructive sleep apnea. 10. Paroxysmal atrial fibrillation. 11. Diabetes mellitus. 12. Hypocalcemia. 13. Morbid obesity. RECOMMENDATION: 1. Continue mechanical ventilation. We will slowly adjust the setting. 2. Albuterol/ipratropium nebulizer. 3. Continue Flagyl and cefepime. I will give a dose of vancomycin. 4. Follow up on the culture. 5. Heart controlled with Cardizem. 6. Pressor to keep the systolic blood pressure above 90. 7. DVT prophylaxis. 8. Nephrology follows. 9. Transfuse if the hematocrit less than 25. 10. Follow up labs and chest radiograph. 11. Discussed with RN and RT. The critical care time was 50 minutes. Thank you for involving me in the care of Mr. Hill. TRANSINT:[id number] Voice Confirmation ID: [id number] DOCUMENT ID: [id number] CONSULT REPORT [id number] CONCHITA HILL MUSHTAQ MD at 1002 CC: [id number] DICTATION DATE: 09/05/19 1149 REGISTERED NURSE CARDIOVASCULAR ICU: 09/05/19 1446 ADM IN [facility] [address] [id number]
--- NOTE | 2019-09-13 11:07 | NUR ---
DR TESFAYE AT BEDSIDE. UDPATE GIVEN. NO NEW ORDERS. NO ACUTE DSITRESS. CVP LINE ZEROED. SEE ADL'S. SEE ASSESSMENT.
--- NOTE | 2019-09-13 12:00 | NUR ---
dr cabrera,, aishwarya and boaz on board with transfer to another facility
--- NOTE | 2019-09-13 12:26 | NUR ---
Right heel has an intact blister measuring 3cm x 3cm (stage 2 pressure injury) Heel protectors are in use along with floating heels by using pillows. Wound care will continue monitoring.
--- NOTE | 2019-09-13 13:17 | NUR ---
contrast given at this time. ng pulled back per dr sandra. secured. spoke with [facility] regarding transfer
--- NOTE | 2019-09-13 15:30 | NUR ---
FAMILY AT BEDSIDE. ASKED QUESTIONS REGARDING TRANSFER. LET FAMILY KNOW THIS CAN TAKE SEVERAL DAYS TO A WEEK BEFORE WE CAN GET ACCEPTANCE IF THEY HAVE A BED.
--- NOTE | 2019-09-13 15:55 | NUR ---
SPOKE WITH DEREK REGARDING TRANSFER IF WHETHER WE ARE GOING TO DO TRACH AND PEG HERE OR [facility]. SHE SAID SHE WOULD FIND OUT AND LET US KNOW.
--- NOTE | 2019-09-13 18:08 | NUR ---
NG CANISTER WAS NOT EMPTIED NOR MARKED FROM LAST NIGHT. SO 1200 WAS DOCUMENTED OUT OF NG ON 1 & O
--- NOTE | 2019-09-13 18:50 | MORECARE ---
CASE MANAGEMENT DISCHARGE SUMMARY PATIENT: CONCHITA HILL UNIT: [id number] ADM DATE: 09/02/19 AGE: 69 : 48 SEX: M ROOM/BED: D.2306 AUTHOR: NETO,DOC PHYSICIAN: REFERRING PHYSICIAN: SAL BELLA MD DATE OF SERVICE: 09/13/19 Discharge Plan Patient Name: CONCHITA HILL Facility: [facility]:[place] : 1950 Planned Disposition: Anticipated Discharge Date: Discharge Date: Expected LOS: Initial Reviewer: [email or web address] Initial Review Date: 09/06/2019 Generated: 09/13/19 7:50 pm DCP- Discharge Planning Updated by [email or web address]: Amy Kerr on 09/06/19 3:[address] Patient Name: CONCHITA HILL Admission Status: ER Accout number: [id number] Admission Date: 09-02-2019 : 1950 Admission Diagnosis: Attending: SAL BELLA Current LOS: 4 Anticipated DC Date: Planned Disposition: Primary Insurance: MEDICARE A & B Discharge Planning Comments: CM met with patient's at bedside after explaining CM role and obtaining verbal consent. Patient is currently on vent sedated. Patient lives at home with his Tiesha where he is independent with his care and plans to return there upon discharge. Patient feels this would be a safe discharge. CM discussed availability / needs of home health and medical equipment. Patient denies any discharge needs at this time. Patient states he will have his family drive him home upon discharge. Patient is currently in ICU uncertain as to what his discharge needs will be at time of discharge. CM will continue to follow and assist as needed with discharge planning / needs. [employer]wood Layup Line Core Layer: Amy Kerr DCPIA - Discharge Planning Initial Assessment Updated by [email or web address]: Amy Kerr on 09/06/19 4:52 pm * Is the patient Alert and Oriented? No * How many steps to enter\exit or inside your home? * PCP [facility] * [facility]acy [facility] * Preadmission Environment Home with Family * ADLs Independent * Equipment CPAP * Other Equipment GLUCOMETER * List name and contact numbers for known caregivers / representatives who currently or will assist patient after discharge: TIESHA HILL - SPOUSE - [phone] * Verbal permission to speak to the caregivers and representatives has been obtained from the patient. N/A * Community resources currently utilized None * Additional services required to return to the preadmission environment? No * Can the patient safely return to the preadmission environment? Yes * Has this patient been hospitalized within the prior 30 days at any hospital? No External Providers External Provider: OTHER-OTHER Next Contact Date: Service Request Date: Service Type: Resolution: Reviewer: Comments: Last DP export: 09/06/19 4:00 Patient Name: CONCHITA HILL Page [phone] at 1850 All edits/amendments must be made on the electronic document DICTATION DATE: 09/13/191849 EMERGENCY MEDICAL TECHNICIAN: FELIPE 09/13/191849 RPT#: [id number] DC DATE: STATUS: ADM IN [facility] [address] [place] [address] END OF REPORT
--- NOTE | 2019-09-13 19:00 | NUR ---
REPORT RECEIVED. PT SEDATED ON VENT. NO ACUTE DISTRESS NOTED AT THIS TIME. CARDONA IN PLACE DRAINING CONCENTRATED IDRIS URINE. RT SUBCLAVIAN CVL INFUSING, SEE IV FLOWSHEET. ASSESSMENT COMPLETED, SEE FLOWSHEET. ARMS AND LEGS BRIDGED, HEEL PROTECTOR ON BILAT. PT STILL IN A-FLUTTER. WILL CONTINUE TO MONITOR.
--- NOTE | 2019-09-13 21:00 | NUR ---
ORAL CARE PROVIDED. FAMILY AT BEDSIDE, UPDATED ON STATUS. WILL CONTINUE TO MONITOR.
--- NOTE | 2019-09-13 23:00 | NUR ---
PT CONVERTED TO NORMAL SINUS RHYTHM. HR 105 AT THIS TIME, NO ACUTE DISTRESS NOTED. WILL CONTINUE TO MONITOR.
[2019-09-14] VITALS (24 sets, daily range): BP systolic 104–163; BP diastolic 41–81
--- NOTE | 2019-09-14 01:00 | NUR ---
PT SEDATED ON VENT, NO ACUTE DISTRESS AT THIS TIME. WILL CONTINUE TO MONITOR.
--- NOTE | 2019-09-14 02:45 | NUR ---
SPOKE WITH HERB ASHLEY APN ABOUT INSULIN INFUSION RATE EXCEEDING 40 UNIT/HR MAX RATE ON PUMP. ORDERS RECEIEVED TO NOTIFY IF BLOOD SUGARS EXCEED 200. WILL CONTINUE TO MONITOR.
--- NOTE | 2019-09-14 03:00 | NUR ---
PT SEDATED ON VENT. DRESSING CHANGED ON ABDOMINAL INCISION. PT STILL IN NORMAL SINUS RHYTHM. WILL CONTINUE TO MONITOR.
--- NOTE | 2019-09-14 05:00 | NUR ---
PT SEDATED ON VENT. CHG BATH GIVEN, LINEN CHANGE. REPOSITIONED FOR COMFORT, WILL CONTINUE TO MONITOR.
[2019-09-14 06:44] LABS: BASOPHILS 0.3 % (0-2); EOSINOPHILS 1.3 % (0-7); IMMATURE GRANULOCYTES 0.7 % (0-5); LYMPHOCYTES 11.7 % (15-50); MCH 30.5 pg (26.0-34.0); MCHC 29.6 g/dL (31.0-37.0); MCV 103.1 fL (80.0-100.0); MEAN PLATELET VOLUME 12.9 fL (7.4-10.4); MONOCYTES 10.7 % (2-11); NEUTROPHILS 75.3 % (40-80); PLATELET COUNT 462 10x3/uL (130-400); RBC 2.62 10x6/uL (4.20-6.10); RDW 19.8 % (11.5-14.5); WBC 17.4 10x3/uL (4.8-10.8)
[2019-09-14 07:13] LABS: ALBUMIN 2.7 g/dL (3.4-5.0); ANION GAP 21.9 mmol/L (8-16); BILIRUBIN - TOTAL 0.31 mg/dL (0.2-1.3); CALCIUM 7.6 mg/dL (8.5-10.1); CARBON DIOXIDE 16.9 mmol/L (21.0-32.0); CREATININE - SERUM 4.2 mg/dL (0.6-1.3); MAGNESIUM - SERUM 2.5 mg/dL (1.8-2.4); PHOSPHOROUS 5.4 mg/dL (2.5-4.9); POTASSIUM - SERUM 5.8 mmol/L (3.5-5.1); PROTEIN - SERUM 5.4 g/dL (6.4-8.2)
--- NOTE | 2019-09-14 07:30 | NUR ---
patient report recieved. no acute dsitress. see assessment. see adl's.
--- NOTE | 2019-09-14 10:36 | NUR ---
SPOKE WITH ANUSHA FROM [facility] AND STATED THEY WERE READY TO TRANSFER WHEN THE DOCS WERE. JUST NEEDING SOME MORE INFORMATION FROM [employer] SALES CONSULTANT BEFORE TRANSFERING.
--- NOTE | 2019-09-14 11:00 | NUR ---
REASSESSMENT COMPLETE PER FLOW SHEET. REFER FOR FINDINGS. VSS. WILL CONTINUE TO MONITOR
[2019-09-14 11:46] LABS: ANION GAP 20.6 mmol/L (8-16); CALCIUM 7.5 mg/dL (8.5-10.1); CARBON DIOXIDE 17.9 mmol/L (21.0-32.0); CREATININE - SERUM 4.3 mg/dL (0.6-1.3)
[2019-09-14 11:50] LABS: POTASSIUM - SERUM 6.5 mmol/L (3.5-5.1)
--- NOTE | 2019-09-14 12:00 | NUR ---
NUTRITION CONSULT TUBE FEED ORDERS STARTED BY DR WILSON. ADDED NURSING MESSAGE FOR GOAL RATE AND FLUSHES. RD FOLLOWING
--- NOTE | 2019-09-14 12:00 | NUR ---
spoke with dr dash regarding critical potassium. new orders given.
--- NOTE | 2019-09-14 13:06 | NUR ---
spoke with [facility] regarding trasnfer. transfer will take placeo n . they stated on need to trach and peg here.
--- NOTE | 2019-09-14 15:00 | NUR ---
REASSESSMENT COMPLETE PER FLOW SHEET. VSS. REFER FOR FINDINGS. WILL CONTINUE TO MONITOR
--- NOTE | 2019-09-14 17:00 | NUR ---
residual of 150 ml
--- NOTE | 2019-09-14 19:00 | NUR ---
SHIFT ASSESSMENT COMPLETED, PT CARE ASSUMED. MONITORS ON AND WORKING, VENT SETTINGS NOTED. CARDONA STAT LOCKED IN PLACE. SEE FLOW SHEET FOR FURTHER DETAILS. WILL CONTINUE TO OBSERVE.
--- NOTE | 2019-09-14 21:00 | NUR ---
PT ASSISTED WITH URINAL, PT TOLERATED WELL. FAMILY MEMBER CALLED, PASSWORD CONFIRMED AND UPDATE PROVIDED, PT CONFUSED AND VERY TALKATIVE, PLEASANT MOOD. WILL CONTINUE TO OBSERVE.
--- NOTE | 2019-09-14 21:00 | NUR ---
PT TURNED AND REPOSITIONED FOR COMFORT. AT BEDSIDE, UPDATE PROVIDED. WILL CONTINUE TO OBSERVE.
--- NOTE | 2019-09-14 23:00 | NUR ---
PT TURNED AND REPOSITIONED FOR COMFORT, MONITORS ON AND WORKING, VITALS STABLE, WILL CONTINUE TO OBSERVE. SEE FLOW SHEET FOR FURTHER DETAILS.
[2019-09-15] VITALS (24 sets, daily range): BP systolic 121–172; BP diastolic 45–101
--- NOTE | 2019-09-15 01:00 | NUR ---
PT TURNED AND REPOSITIONED FOR COMFORT, MONITORS ON AND WORKING, VITALS STABLE. WILL CONTINUE TO OBSERVE.
--- NOTE | 2019-09-15 03:00 | NUR ---
NO CHANGES, SEE FLOW SHEET FOR FURTHER DETAILS. MONITORS ON AND WORKING, VITALS STABLE, WILL CONTINUE TO OBSERVE.
--- NOTE | 2019-09-15 05:00 | NUR ---
CVL AND TRIALYSIS CATH DRESSING CHANGED. MONITORS ON AND WORKING, VITALS STABLE. WILL CONTINUE TO OBSERVE.
[2019-09-15 06:21] LABS: ALBUMIN 2.6 g/dL (3.4-5.0); BILIRUBIN - TOTAL 0.44 mg/dL (0.2-1.3); CALCIUM 7.9 mg/dL (8.5-10.1); MAGNESIUM - SERUM 2.2 mg/dL (1.8-2.4); PHOSPHOROUS 4.3 mg/dL (2.5-4.9); PROTEIN - SERUM 6.1 g/dL (6.4-8.2); VANCOMYCIN - RANDOM 27.9 ug/mL (10.0-20.0)
[2019-09-15 06:24] LABS: ANION GAP 15.2 mmol/L (8-16); CARBON DIOXIDE 25.1 mmol/L (21.0-32.0); POTASSIUM - SERUM 4.3 mmol/L (3.5-5.1)
[2019-09-15 06:46] LABS: BASOPHILS 0.5 % (0-2); EOSINOPHILS 1.8 % (0-7); HEMATOCRIT 24.7 % (42.0-54.0); HEMOGLOBIN 7.7 g/dL (13.5-17.5); IMMATURE GRANULOCYTES 0.7 % (0-5); LYMPHOCYTES 12.4 % (15-50); MCH 30.4 pg (26.0-34.0); MCHC 31.2 g/dL (31.0-37.0); MEAN PLATELET VOLUME 12.8 fL (7.4-10.4); MONOCYTES 10.1 % (2-11); NEUTROPHILS 74.5 % (40-80); PLATELET COUNT 466 10x3/uL (130-400); RBC 2.53 10x6/uL (4.20-6.10); RDW 19.1 % (11.5-14.5); WBC 15.8 10x3/uL (4.8-10.8)
[2019-09-15 06:47] LABS: MCV 97.6 fL (80.0-100.0)
--- NOTE | 2019-09-15 07:00 | NUR ---
REC'D REPORT AND RESUMED CARE, ETT TO VENTILATION AND SECURED, FIO2 50%, SAT 100%, NGT TO RIGHT NARE, TF GLUCERNA 1.0, RESIDUAL CHECK 320 ML, TF DOWN TO 10 CC/HR, RIGHT IJ TRIALYSIS WITH CDI DRESSING S/L, RIGHT SC, WITI CARDIZEM, AMNIO, BICARB GTT, VERSED AND FENTANYL PATIENT PORTAL REPRESENTATIVE'S, AND 1/2 NS AT KVO, MIDLINE ABDOMINAL DRESSING CDI, LOWER LEFT ABDOMEN WITH RONNIE DRAIN FUL OF SEROUS FLUID, CARDONA TO GRAVITY SET UP TO PRESSURE BAG, SCD'S B/L, HEEL PROTECTORS IN USE, ASSESSMENT COMPLETED PER FLOWSHEET, VSS AROUSES TO TACTILE STIMULI, DOES NOT FOLLOW COMMANDS, WILL CONTINUE WITH POC
--- NOTE | 2019-09-15 09:59 | NUR ---
AT BEDSIDE, STATUS UPDATED, AWAITING TRANSFER TO [facility]
--- NOTE | 2019-09-15 10:09 | NUR ---
HD NURSE AT BEDSIDE, SETTING UP FOR PENDING HD
--- NOTE | 2019-09-15 11:08 | NUR ---
PER DR HONG, 1 UNIT PER ORDERED TO BE GIVEN ON HD, PC TO BB RE: NEEDING KATHERINE
--- NOTE | 2019-09-15 11:33 | NUR ---
PRBC GIVEN ON HD BY HD NURSE
--- NOTE | 2019-09-15 13:15 | NUR ---
HD COMPLETED, 3L OFF, VSS
--- NOTE | 2019-09-15 16:45 | NUR ---
BICARB GTT DC'D AND NS INTITIATED AT 10 CC/HR PER ORDER
--- NOTE | 2019-09-15 17:53 | NUR ---
AT BEDSIDE, STATUS UPDATED, VOICES NO NEEDS AT THIS TIME
--- NOTE | 2019-09-15 19:00 | NUR ---
SHIFT ASSESSMENT COMPLETED. PT CARE ASSUMED. MONITORS ON AND WORKING, VITALS STABLE, SEE FLOW SHEET FOR FURTHER DETAILS. WILL CONTINUE TO OBSERVE.
--- NOTE | 2019-09-15 21:00 | NUR ---
PT TURNED AND REPOSITIONED FOR COMFORT. MONITORS ON AND WORKING, VITALS STABLE. AT BEDSIDE, UPDATE PROVIDED. WILL CONTINUE TO OBSERVE.
--- NOTE | 2019-09-15 23:00 | NUR ---
NO CHANGES, SEE FLOW SHEET FOR FURTHER DETAILS. WILL CONTINUE TO OBSERVE.
[2019-09-16] VITALS (23 sets, daily range): BP systolic 125–166; BP diastolic 43–57
--- NOTE | 2019-09-16 01:00 | NUR ---
PT TURNED AND REPOSITIONED FOR COMFORT. MONITORS ON AND WORKING VITALS STABLE, WILL CONTINUE TO OBSERVE.
--- NOTE | 2019-09-16 03:00 | NUR ---
PT TURNED AND REPOSTIONED FOR COMFORT. MONITORS ON AND WORKING, VITALS STABLE. SEE FLOW SHEET FOR FURTHER DETAILS. WILL CONTINUE TO OBSERVE.
--- NOTE | 2019-09-16 05:00 | NUR ---
NO CHANGES. WILL CONTINUE TO OBSERVE.
--- NOTE | 2019-09-16 07:00 | NUR ---
REC'D REPORT AND CARE RESUMED, GASTRIC CONTENT COMING FROM MOUTH, PLACE NGT TO SUCTION, 900 CC GREEN SECRETIONS TO CANISTER, PLACED TO LIWS, ETT TO VENTILATION AND SECURED, O2 SAT 98% ON 40% FIO2, OTHER VSS, AROUSES TO TACTILE STIMULI, DOSE NOT FOLLOW COMMANDS, ASSESSMENT COMPLETED PER FLOWHSEET, WILL WILL CONTINUE WITH POC
[2019-09-16 07:18] LABS: ALBUMIN 2.6 g/dL (3.4-5.0); BILIRUBIN - TOTAL 0.62 mg/dL (0.2-1.3); CARBON DIOXIDE 25.9 mmol/L (21.0-32.0); MAGNESIUM - SERUM 1.9 mg/dL (1.8-2.4); POTASSIUM - SERUM 3.9 mmol/L (3.5-5.1); PROTEIN - SERUM 6.5 g/dL (6.4-8.2); VANCOMYCIN - RANDOM 22.1 ug/mL (10.0-20.0)
--- NOTE | 2019-09-16 07:18 | NUR ---
DR WALTERS PAGED CONCERNING RESIDUAL AND GASTRIC CONTENT COMING FROM PT MOUTH, REC'D ORDERS TO CONTINUE TO HOLD TUBE FEEDS AND HOOK OG TUBE UP TO LOW INT. WALL SUCTION.
[2019-09-16 07:26] LABS: BASOPHILS 0.6 % (0-2); EOSINOPHILS 0.8 % (0-7); HEMOGLOBIN 8.1 g/dL (13.5-17.5); IMMATURE GRANULOCYTES 0.8 % (0-5); LYMPHOCYTES 11.2 % (15-50); MCH 30.3 pg (26.0-34.0); MCHC 32.4 g/dL (31.0-37.0); MCV 93.6 fL (80.0-100.0); MEAN PLATELET VOLUME 12.7 fL (7.4-10.4); MONOCYTES 9.9 % (2-11); NEUTROPHILS 76.7 % (40-80); PLATELET COUNT 464 10x3/uL (130-400); RBC 2.67 10x6/uL (4.20-6.10); RDW 19.1 % (11.5-14.5); WBC 17.8 10x3/uL (4.8-10.8)
--- NOTE | 2019-09-16 07:50 | NUR ---
DR WILSON HER FOR EVAL, NEW ORDERS GIVEN
--- NOTE | 2019-09-16 08:45 | NUR ---
Nutrition follow-up: Intubated, sedated TF of Glucerna off at this time 2/2 increased residuals Labs reviewed Dialysis in progress Due to pt now with dialysis, recommend changing TF formula to Nepro @ 25 ml/hr with increase to goal rate of 60 ml/hr RDN following.
--- NOTE | 2019-09-16 08:50 | NUR ---
LLQ RONNIE DRAIN DC'D, 60 CC'S SEROUS DRAINAGE TO DAVOL CONTAINER, DRESSING CHANGE COMPLETED INCLUDING , MIDLINE ABD AND LUQ, WILL CONTINUE WITH POC
--- NOTE | 2019-09-16 09:05 | NUR ---
HD INTIIATED, VSS
--- NOTE | 2019-09-16 11:35 | NUR ---
DEREK WITH CASE MANAGEMENT HERE DISCUSSED PENDING TRANSFER TO [facility] IN [place], STATED THAT THEY WILL ACCEPT PAITENT WITHOUT HAVING TRACH AND PEG ALREADY, SHE IS SENDING UPDATED MEDCIAL RECORDS TODAY
--- NOTE | 2019-09-16 11:57 | MORECARE ---
CASE MANAGEMENT DISCHARGE SUMMARY PATIENT: CONCHITA HILL UNIT: [id number] ADM DATE: 09/02/19 AGE: 69 : 48 SEX: M ROOM/BED: D.2306 AUTHOR: NETO,DOC PHYSICIAN: REFERRING PHYSICIAN: SAL BELLA MD DATE OF SERVICE: 09/16/19 Discharge Plan Patient Name: CONCHITA HILL Facility: [facility]:[place] : 1950 Planned Disposition: Anticipated Discharge Date: Discharge Date: Expected LOS: Initial Reviewer: [email or web address] Initial Review Date: 09/06/2019 Generated: 09/16/19 12:57 pm DCP- Discharge Planning Updated by [email or web address]: Amy Kerr on 09/06/19 3:[address] Patient Name: CONCHITA HILL Admission Status: ER Accout number: [id number] Admission Date: 09-02-2019 : 1950 Admission Diagnosis: Attending: SAL BELLA Current LOS: 4 Anticipated DC Date: Planned Disposition: Primary Insurance: MEDICARE A & B Discharge Planning Comments: CM met with patient's at bedside after explaining CM role and obtaining verbal consent. Patient is currently on vent sedated. Patient lives at home with his Tiesha where he is independent with his care and plans to return there upon discharge. Patient feels this would be a safe discharge. CM discussed availability / needs of home health and medical equipment. Patient denies any discharge needs at this time. Patient states he will have his family drive him home upon discharge. Patient is currently in ICU uncertain as to what his discharge needs will be at time of discharge. CM will continue to follow and assist as needed with discharge planning / needs. Specimen Preparation Assistant: Amy Kerr DCPIA - Discharge Planning Initial Assessment Updated by [email or web address]: Amy Kerr on 09/06/19 4:52 pm * Is the patient Alert and Oriented? No * How many steps to enter\exit or inside your home? * PCP GARRISON AMBRIZ * Pharmacy [facility] * Preadmission Environment Home with Family * ADLs Independent * Equipment CPAP * Other Equipment GLUCOMETER * List name and contact numbers for known caregivers / representatives who currently or will assist patient after discharge: TIESHA HILL - SPOUSE - [phone] * Verbal permission to speak to the caregivers and representatives has been obtained from the patient. N/A * Community resources currently utilized None * Additional services required to return to the preadmission environment? No * Can the patient safely return to the preadmission environment? Yes * Has this patient been hospitalized within the prior 30 days at any hospital? No External Providers External Provider: OTHER-OTHER Next Contact Date: Service Request Date: Service Type: Resolution: Reviewer: Comments: Last DP export: 09/13/19 5:50 Patient Name: CONCHITA HILL Page [phone] at 1157 All edits/amendments must be made on the electronic document DICTATION DATE: 09/16/191156 UPHOLSTERER HELPER: FELIPE 09/16/19 1157 RPT#: [id number] DC DATE: STATUS: ADM IN [address] [place] [address] END OF REPORT
--- NOTE | 2019-09-16 11:58 | OP ---
PATIENT NAME: CONCHITA HILL MEDICAL RECORD: [id number] :[birth year] LOCATION:D.ICU D.2306 ADMISSION DATE:09/02/19 SURGEON: MARIELENA WALTERS MD DATE OF OPERATION: 09/14/2019 PREOPERATIVE DIAGNOSES: 1. Ijxrm-gl-htnokug renal failure. 2. Acute respiratory failure on the ventilator. 3. Chronic obstructive pulmonary disease. 4. Hypertension. 5. Diabetes mellitus. 6. Ischemic bowel, status post exploratory lap with small bowel resection. POSTOPERATIVE DIAGNOSES: 1. Lnuhv-cz-ravnzgn renal failure. 2. Acute respiratory failure on the ventilator. 3. Chronic obstructive pulmonary disease. 4. Hypertension. 5. Diabetes mellitus. 6. Ischemic bowel, status post exploratory lap with small bowel resection. PROCEDURE: Right IJ 15 cm Trialysis catheter placement. SURGEON: Marielena Walters MD REPORT OF PROCEDURE: The patient's right neck was prepped and draped in sterile fashion. Using ultrasound guidance, a needle was used to cannulate the right internal jugular vein and a guidewire was advanced with ease. Over this wire, a dilator was placed followed by the Trialysis catheter. The catheter aspirated nonpulsatile dark blood and flushed easily in all 3 ports. The catheter was then sutured into place with 4-0 nylon and dressed appropriately. COMPLICATIONS: None. CONDITION: Fair. ANESTHESIA: General endotracheal. BLOOD LOSS: Minimal. Procedure done in the ICU at the bedside. TRANSINT:[id number] Voice Confirmation ID: [id number] DOCUMENT ID: [id number] MARIELENA WALTERS MD at 1158 CC: [id number] DICTATION DATE: 09/14/19 1604 TRANSFERRER: 09/15/19 0316 ADM IN [place] [id number] [place] [id number]
--- NOTE | 2019-09-16 12:08 | NUR ---
HD COMPLETEDD, 3L OFF, VSS
--- NOTE | 2019-09-16 14:00 | NUR ---
TF INITIATED AT 10 CC/HR,
--- NOTE | 2019-09-16 15:00 | NUR ---
REASSESSMENT COMPLETED, NO ACUTE CHANGE FROM PREVIOUS, VSS, PER CASE MANAGEMENT PATIENT WILL GO TO [facility] IN AM, DISK FROM RADIOLOGY OBTAINED
--- NOTE | 2019-09-16 16:00 | NUR ---
I AND O'S COMPLETED, SON AND AT BEDSIDE, AWAITING TRANSFER TO [facility]
--- NOTE | 2019-09-16 19:00 | NUR ---
SHIFT ASSESSMENT COMPLETED. PT CARE ASSUMED. MONITORS ON AND WORKING, VITALS STABLE. SEE FLOW SHEET FOR FURTHER DETIALS. WILL CONTINUE TO OBSERVE.
--- NOTE | 2019-09-16 23:00 | NUR ---
FAMILY AT BEDSIDE, MONITORS ON AND WORKING, VITALS STABLE, SEE FLOW SHEET FOR FURTHER DETAILS. WILL CONTINUE TO OBSERVE.
[2019-09-17] VITALS: BP 151/44
[2019-09-17 01:00] VITALS: BP 137/41
--- NOTE | 2019-09-17 01:00 | NUR ---
PT TURNED AND REPOSITIONED Q2H AND PRN. NO CHNAGES AT THIS TIME, WILL CONTINUE TO OBSERVE.
[2019-09-17 02:00] VITALS: BP 128/42
[2019-09-17 03:00] VITALS: BP 167/57
--- NOTE | 2019-09-17 03:00 | NUR ---
PT TURNED AND REPOSITIONED FOR COMFORT, MONITORS ON AND WORKING, VITALS STABLE. SEE FLOW SHEET FOR FURTHER DETAILS. WILL CONTINUE TO OBSERVE.
[2019-09-17 04:00] VITALS: BP 148/52
--- NOTE | 2019-09-17 06:48 | NUR ---
SPOKE WITH ASAEL NEAL AT [facility]. REPORT GIVEN.
[2019-09-17 07:00] VITALS: BP 148/52
[2019-09-17 07:12] LABS: HEPATITIS C ANTIBODY <0.1 S/CO RAT (0.0-0.9)
[2019-09-17 07:50] LABS: ALBUMIN 2.6 g/dL (3.4-5.0); ANION GAP 16.2 mmol/L (8-16); BILIRUBIN - TOTAL 0.61 mg/dL (0.2-1.3); CALCIUM 8.3 mg/dL (8.5-10.1); CARBON DIOXIDE 26.7 mmol/L (21.0-32.0); POTASSIUM - SERUM 3.9 mmol/L (3.5-5.1); PROTEIN - SERUM 6.6 g/dL (6.4-8.2); VANCOMYCIN - RANDOM 18.2 ug/mL (10.0-20.0)
--- NOTE | 2019-09-17 08:35 | NUR ---
VERSED QUARTZ MOUNTER NEAR END, CHANGED FOR TRANSORT
--- NOTE | 2019-09-17 09:10 | NUR ---
ALL LINES DC'D NGT CLAMPED, PATIENT INCONTINENT, SKINCARE AND LINEN CHANGE COMPLETED
--- NOTE | 2019-09-17 16:25 | MORECARE ---
CASE MANAGEMENT DISCHARGE SUMMARY PATIENT: CONCHITA HILL UNIT: [id number] ADM DATE: 09/02/19 AGE: 69 : 48 SEX: M ROOM/BED: D.2306 AUTHOR: NETO,DOC PHYSICIAN: REFERRING PHYSICIAN: SAL BELLA MD DATE OF SERVICE: 09/17/19 Discharge Plan Patient Name: CONCHITA HILL Facility: [facility]:[place] : 1950 Planned Disposition: Associate Financial Representative Acute Care Facility Anticipated Discharge Date: 09/17/19 Discharge Date: 09/17/2019 Expected LOS: 15 Initial Reviewer: [email or web address] Initial Review Date: 09/06/2019 Generated: 09/17/19 5:24 pm DCP- Discharge Planning Updated by [email or web address]: Amy Kerr on 09/06/19 3:[address] Patient Name: CONCHITA HILL Admission Status: ER Accout number: [id number] Admission Date: 09-02-2019 : 1950 Admission Diagnosis: Attending: SAL BELLA Current LOS: 4 Anticipated DC Date: Planned Disposition: Primary Insurance: MEDICARE A & B Discharge Planning Comments: CM met with patient's at bedside after explaining CM role and obtaining verbal consent. Patient is currently on vent sedated. Patient lives at home with his Tiesha where he is independent with his care and plans to return there upon discharge. Patient feels this would be a safe discharge. CM discussed availability / needs of home health and medical equipment. Patient denies any discharge needs at this time. Patient states he will have his family drive him home upon discharge. Patient is currently in ICU uncertain as to what his discharge needs will be at time of discharge. CM will continue to follow and assist as needed with discharge planning / needs. Glaze Sprayer: Amy Kerr DCPIA - Discharge Planning Initial Assessment Updated by [email or web address]: Amy Kerr on 09/06/19 4:52 pm * Is the patient Alert and Oriented? No * How many steps to enter\exit or inside your home? * PCP [facility] * Pharmacy [facility] * Preadmission Environment Home with Family * ADLs Independent * Equipment CPAP * Other Equipment GLUCOMETER * List name and contact numbers for known caregivers / representatives who currently or will assist patient after discharge: TIESHA HILL - SPOUSE - [phone] * Verbal permission to speak to the caregivers and representatives has been obtained from the patient. N/A * Community resources currently utilized None * Additional services required to return to the preadmission environment? No * Can the patient safely return to the preadmission environment? Yes * Has this patient been hospitalized within the prior 30 days at any hospital? No Last DP export: 09/16/19 10:57 am Patient Name: CONCHITA HILL Page [id number] at 1625 All edits/amendments must be made on the electronic document DICTATION DATE: 09/17/191623 FURNACE TAPPER: FELIPE 09/17/191623 RPT#: [id number] DC DATE:09/17/19 STATUS: DIS IN [facility] [address] [place] [address] END OF REPORT
--- NOTE | 2019-09-17 17:02 | MORECARE ---
CASE MANAGEMENT DISCHARGE SUMMARY PATIENT: CONCHITA HILL UNIT: [id number] ADM DATE: 09/02/19 AGE: 69 : 48 SEX: M ROOM/BED: D.2306 AUTHOR: NETO,DOC PHYSICIAN: REFERRING PHYSICIAN: SAL BELLA MD DATE OF SERVICE: 09/17/19 Discharge Plan Patient Name: CONCHITA HILL Facility: [facility]:[place] : 1950 Planned Disposition: [place] Acute Care Facility Anticipated Discharge Date: 09/17/19 Discharge Date: 09/17/2019 Expected LOS: 15 Initial Reviewer: [email or web address] Initial Review Date: 09/06/2019 Generated: 09/17/19 6:01 pm Comments DCP- Discharge Planning Updated by [id number]: Amy eKrr on 09/17/19 4:[address] LATE ENTRY 09/14/19 CM received notification for LTACH referral - CM spoke with Tiesha and GLENYS signed for [facility] in [place]. CM sent referral to facility. CM received call back from Ophelia needing more information. 09/16/19 CM called Ophelia to see status of transfer. Ophelia requested updated clinical. CM faxed updated clinical and awaited call back from Ophelia. CM received call back 1630 that patient has been accepted to LTACH and can transfer in am. Ophelia stated physician wants patient there no later than noon 09/17/19. CM called [facility] set up transportation to grape picker patient at [phone]. CM notified charge nurse of transfer details and needs for transport in am. Nursing to call report in am. D/C IMM signed DCP- Discharge Planning Updated by [id number]: Amy Kerr on 09/06/19 3:[address] Patient Name: CONCHITA HILL Admission Status: ER Accout number: [id number] Admission Date: 09-02-2019 : 1950 Admission Diagnosis: Attending: SAL BELLA Current LOS: 4 Anticipated DC Date: Planned Disposition: Primary Insurance: MEDICARE A & B Discharge Planning Comments: CM met with patient's at bedside after explaining CM role and obtaining verbal consent. Patient is currently on vent sedated. Patient lives at home with his Tiesha where he is independent with his care and plans to return there upon discharge. Patient feels this would be a safe discharge. CM discussed availability / needs of home health and medical equipment. Patient denies any discharge needs at this time. Patient states he will have his family drive him home upon discharge. Patient is currently in ICU uncertain as to what his discharge needs will be at time of discharge. CM will continue to follow and assist as needed with discharge planning / needs. Golf Club Head Inspector And Adjuster: Amy GODOY - Discharge Planning Initial Assessment Updated by [email or web address]: Amy Kerr on 09/06/19 4:52 pm * Is the patient Alert and Oriented? No * How many steps to enter\exit or inside your home? * PCP [facility] * [facility]acy [facility] * Preadmission Environment Home with Family * ADLs Independent * Equipment CPAP * Other Equipment GLUCOMETER * List name and contact numbers for known caregivers / representatives who currently or will assist patient after discharge: TIESHA HILL - SPOUSE - [phone] * Verbal permission to speak to the caregivers and representatives has been obtained from the patient. N/A * Community resources currently utilized None * Additional services required to return to the preadmission environment? No * Can the patient safely return to the preadmission environment? Yes * Has this patient been hospitalized within the prior 30 days at any hospital? No Coverage Notice Reviewer: [email or web address] Zo Kerr Notice Issued Date-Time: 09/16/2019 12:20 Notice Type: IM Discharge Notice Notice Delivered To: Family Member Relationship to Patient: Spouse Staff Nuclear Weapons Officer Name: TIESHA HILL Delivery Method: HAND - Hand Delivered Elli Days: Prior Verbal Notification: Recipient Understood Notice: Yes Recipient Signature: Yes Med Rec Note Co-signed by Attending: Coverage Notice Comment: Reviewer: [id number] Zo Kerr Notice Issued Date-Time: 09/14/2019 12:30 Notice Type: Patient Choice Letter Notice Delivered To: Patient Relationship to Patient: Spouse Staff Nuclear Weapons Officer Name: Delivery Method: HAND - Hand Delivered Elli Days: Prior Verbal Notification: Recipient Understood Notice: Yes Recipient Signature: Yes Med Rec Note Co-signed by Attending: Coverage Notice Comment: Last DP export: 09/17/19 3:25 pm Patient Name: CHICHI HILLNE Page [phone] at 1702 All edits/amendments must be made on the electronic document DICTATION DATE: 09/17/191701 PROFESSOR OF PRACTICE: FELIPE 09/17/191701 RPT#: [id number] DC DATE:09/17/19 STATUS: DIS IN [facility] [address] [place] [address] END OF REPORT
--- NOTE | 2019-09-20 11:13 | CN ---
PATIENT NAME:CONCHITA HILL MEDICAL RECORD: [id number] : 46 LOCATION:MIGUEL.2306 ADMIT DATE: 09/02/19 ACCOUNT: [id number] CONSULTING PHYSICIAN: MARY GAO MD REFERRING PHYSICIAN: SAL BELLA MD DATE OF CONSULTATION: 09/11/2019 CARDIOLOGY CONSULTATION DIAGNOSES: 1. Tachycardia. 2. Atrial fibrillation. 3. Respiratory failure status post intubation. 4. Small bowel obstruction status post surgery. HISTORY OF PRESENT ILLNESS: This is a gentleman who presents with abdominal complaints, found to have small bowel obstruction status post surgery, was left open, was brought back to the OR to close. He went into atrial fibrillation during this hospitalization. He remains tachycardic with the atrial fibrillation. His systolic blood pressures in the 100-110 range. He is not on any pressors. He is on a Cardizem drip as well as an amiodarone drip. We do not know any cardiac history on him. Right now, he is in atrial flutter. Heart rate of 140-150 with 2:1 block. PHYSICAL EXAMINATION: CONSTITUTIONAL/GENERAL APPEARANCE: Well nourished, well developed, appears stated age. The patient is sedated, intubated. EYES: Lids and conjunctivae noninjected. No discharge. No pallor. ENT: Lips within normal limit. No cyanosis. No pallor. NECK: Carotid arteries, bilateral normal upstroke. No bruits. No thrills. No jugular venous pressure or distention. CERVICAL LYMPH NODES: Nontender. Nonenlarged. THYROID: Not enlarged. No nodules. CARDIOVASCULAR: Tachy, regular at 140. RESPIRATORY: Respiratory effort, unlabored. Normal curvature. No thoracic deformity. No chest wall tenderness. Percussion, resonant. Auscultation, clear. No wheezes, no rales, no rhonchi. ABDOMEN: Soft, nondistended, nontender. No abdominal pain, no vomiting and normal appetite. MUSCULOSKELETAL: No joint tenderness, normal gait, normal tone. SKIN: Warm and dry. OVERALL IMPRESSION: Atrial fibrillation/atrial flutter. At this time, continue the Cardizem. Continue the amiodarone drip. We will add digoxin with a full load to his medical regimen. When he recovers from his abdominal problems and stabilize this, could also as well perform DC cardioversion. TRANSINT:[id number] Voice Confirmation ID: [id number] DOCUMENT ID: [id number] CONSULT REPORT [id number] CONCHITA HILL, MARY CONKLIN at 1113 CC: [id number] DICTATION DATE: 09/11/19 1153 PRODUCT MANAGER E COMMERCE: 09/11/19 1230 DIS IN 09/17/19 [place] [id number]
== END 2019-09-17 13:13 | DRG 853 ==
LOC: D.ER 05:54 → D.ICU 06:29 → D.MS 06:29 → D.ER 07:12 → D.ICU 09-04 14:30
PROVIDERS: Family Medicine; Internal Medicine; Internal Medicine Nephrology; Internal Medicine Pulmonary Disease; Surgery; ADMIT Internal Medicine Nephrology; ATTEND Internal Medicine Nephrology
PROC: 5A1955Z Respiratory Ventilation, Greater than 96 Consecutive Hours (ICD-10-PCS; 2019-09-04)
PROC: 0BH17EZ Insertion of Endotracheal Airway into Trachea, Via Natural or Artificial Opening (ICD-10-PCS; 2019-09-04)
PROC: 0DB80ZZ Excision of Small Intestine, Open Approach (ICD-10-PCS; principal; 2019-09-04 10:50)
PROC: 05H533Z Insertion of Infusion Device into Right Subclavian Vein, Percutaneous Approach (ICD-10-PCS; 2019-09-04 10:50)
PROC: 0WQFXZZ Repair Abdominal Wall, External Approach (ICD-10-PCS; 2019-09-06 13:00)
PROC: 05HM33Z Insertion of Infusion Device into Right Internal Jugular Vein, Percutaneous Approach (ICD-10-PCS; 2019-09-14)
DX: A41.9 Sepsis, unspecified organism (principal); N17.0 Acute kidney failure with tubular necrosis; K55.049 Acute infarction of large intestine, extent unspecified; K55.029 Acute infarction of small intestine, extent unspecified; R65.21 Severe sepsis with septic shock; J96.01 Acute respiratory failure with hypoxia; J18.9 Pneumonia, unspecified organism; I50.23 Acute on chronic systolic (congestive) heart failure; K56.7 Ileus, unspecified; Z68.42 Body mass index [BMI] 45.0-49.9, adult; E87.2 Acidosis; I13.0 Hypertensive heart and chronic kidney disease with heart failure and stage 1 through stage 4 chronic kidney disease, or unspecified chronic kidney disease; E11.22 Type 2 diabetes mellitus with diabetic chronic kidney disease; N18.9 Chronic kidney disease, unspecified; N40.0 Benign prostatic hyperplasia without lower urinary tract symptoms; E66.01 Morbid (severe) obesity due to excess calories; D64.9 Anemia, unspecified; E83.51 Hypocalcemia; E11.40 Type 2 diabetes mellitus with diabetic neuropathy, unspecified; I73.9 Peripheral vascular disease, unspecified; Y95 Nosocomial condition; I48.0 Paroxysmal atrial fibrillation; E87.5 Hyperkalemia